=== PATIENT | female | born 1935 | race Caucasian/White ===

== ENCOUNTER 2017-11-24 11:25 | Observation (INO) | payer MEDICARE, OTHER ==
[~2017-11-24] VITALS: Ht 144.8 cm; Wt 52.0 kg
[~2017-11-24 11:25] MED LIST: ADVA250A INH; ASPI81 PO; BENI40TA30; CLON-481; COMBAER INH; COZA100T PO; EZET10; LABE200T2 PO; LEVA500T33 PO; PRED5SOL PO; RANI150 PO; SPIR25; ZOLO20CO PO
[2017-11-24 11:35] VITALS: BP 152/67; PULSE 82; RESP 16; TEMP 98.4; O2SAT 98
--- NOTE | 2017-11-24 11:37 | PD ---
HPI Chief Complaint: Psychiatric Symptoms Time Seen by Provider: 11:29 Travel History International Travel<30 days: No Contact w/Intl Traveler<30days: No Traveled to known affect area: No History of Present Illness HPI 82-year-old female with history of CAD, hypertension, COPD, diabetes, resents to emergency department for evaluation under a Mccullough act. Patient had sent her daughter an email who then contacted police. When police arrived, they found a letter addressed to them and another went to her family. Patient had cut her bilateral wrists with razor blades. She had turned on her grill gas but the gas tank was empty. She admits to taking more clonidine then she is prescribed this morning. Patient is not offering a lot of information and she is not talking about her suicide attempt. She keeps saying that she wants to go home and care for her dogs. She denies any current symptoms. She is very angry that she has been brought here to the emergency department. PFSH Past Medical History Arthritis: Yes Autoimmune Disease: No Blood Disorders: No Depression: Yes (since April) Heart Rhythm Problems: No Cancer: Yes () Cardiovascular Problems: Yes (CARDIAC CATH ) High Cholesterol: Yes Chemotherapy: Yes Chest Pain: No Congestive Heart Failure: No COPD: Yes Cerebrovascular Accident: No Diabetes: Yes Endocrine: No GERD: Yes (by hx) Glaucoma: No Genitourinary: No Headaches: Yes Hepatitis: No Hiatal Hernia: No Hypertension: Yes Immune Disorder: No Musculoskeletal: Yes Neurologic: No Psychiatric: No Reproductive: No Respiratory: Yes Migraines: No Myocardial Infarction: Yes () Radiation Therapy: No Seizures: No Sickle Cell Disease: No Sleep Apnea: No Thyroid Disease: No Ulcer: No Past Surgical History Abdominal Surgery: Yes () AICD: No Appendectomy: Yes (1937) Cardiac Surgery: No Cholecystectomy: Yes (2000) Ear Surgery: No Endocrine Surgery: Yes (CHOLECYSECTOMY IN THE ) Eye Surgery: No Gynecologic Surgery: Yes (HYSTERECTOMY AND BILAT SALPING-OOPHORECTOMY 01/12/06) Hysterectomy: Yes (01/14) Joint Replacement: No Oral Surgery: No Pacemaker: No Thoracic Surgery: No Social History Alcohol Use: No Tobacco Use: Yes (4-5 cigs daily) Substance Use: No Allergies-Medications (Allergen,Severity, Reaction): Coded Allergies: atenolol (Unverified Allergy, Severe, Rash, 05/25/17) atorvastatin (Unverified Allergy, Severe, ALL CHOLESTEROL MEDS N/V, ) diltiazem (Unverified Allergy, Severe, Rash, 05/25/17) diphenhydramine (Unverified Allergy, Severe, ALL ANTIHISTAMINES - CRAMPS, 05/25/17) doxycycline (Unverified Allergy, Severe, Rash, 05/25/17) minocycline (Unverified Allergy, Severe, Rash, 05/25/17) minoxidil (Unverified Allergy, Severe, 05/25/17) nitroglycerin (Unverified Allergy, Severe, Headache, 05/25/17) tigecycline (Unverified Allergy, Severe, Rash, 05/25/17) Uncoded Allergies: ACIDIC FOODS (Adverse Reaction, Intermediate, SKIN BREAK OUTS, 01/12/06) UTENOL (Adverse Reaction, Intermediate, RASH AND JOINT PAIN, 01/12/06) Reported Meds & Prescriptions Reported Meds & Active Scripts Active Reported Klor-Con 10 (Potassium Chloride) 10 Meq Tab 10 Meq PO DAILY Hydrochlorothiazide 12.5 Mg Cap Unknown Dose PO DAILY Advair Diskus Inh (Fluticasone-Salmeterol Inh) 500-50 Mcg/Blist Aer 1 Puff INH BID Rinse mouth after use. Lorazepam 2 Mg Tab 2 Mg PO HS PRN Benicar (Olmesartan) 40 Mg Tab 40 Mg PO DAILY Clonidine (Clonidine HCl) 0.2 Mg Tab 0.2 Mg PO QID Clonidine (Clonidine HCl) 0.3 Mg Tab 0.3 Mg PO HS Review of Systems Except as stated in HPI: all other systems reviewed are Neg Physical Exam Narrative GENERAL: Thin elderly female patient, sitting in the bed in no acute distress. SKIN: Focused skin assessment warm/dry. 2 cm laceration to the lateral aspect of the left anterior lateral wrist. There is another 3 cm laceration to the anterior lateral aspect of the right wrist. These are superficial in nature. Bleeding is controlled. HEAD: Atraumatic. Normocephalic. EYES: Pupils equal and round. No scleral icterus. No injection or drainage. ENT: No nasal bleeding or discharge. Mucous membranes pink and moist. NECK: Trachea midline. No JVD. CARDIOVASCULAR: Regular rate and rhythm. 3/6 systolic aortic murmur appreciated. RESPIRATORY: No accessory muscle use. Diminished. Breath sounds equal bilaterally. GASTROINTESTINAL: Abdomen soft, nondistended. Right lower quadrant tenderness to palpation.. Hepatic and splenic margins not palpable. MUSCULOSKELETAL: No obvious deformities. No clubbing. No cyanosis. No edema. He fully flex and extend all the digits of the bilateral upper extremities. NEUROLOGICAL: Awake and alert. No obvious cranial nerve deficits. Motor grossly within normal limits. Normal speech. PSYCHIATRIC: Flat affect. Data Data Last Documented VS Vital Signs Date Time Temp Pulse Resp B/P (MAP) Pulse Ox O2 Delivery O2 Flow Rate FiO2 11/24/17 11:35 98.4 82 16 152/67 (95) 98 Orders Orders Complete Blood Count With Diff (11/24/17 11:34) Comprehensive Metabolic Panel (11/24/17 11:34) Thyroid Stimulating Hormone (11/24/17 11:34) Psych Screen (11/24/17 11:34) Drug Screen, Random Urine (11/24/17 11:34) Urinalysis - C+S If Indicated (11/24/17 11:36) Electrocardiogram (11/24/17 11:36) Oximetry (11/24/17 11:36) Iv Access Insert/Monitor (11/24/17 11:36) Ecg Monitoring (11/24/17 11:36) Cath For Specimen (11/24/17 11:36) Alcohol (Ethanol) (11/24/17 11:36) Salicylates (Aspirin) (11/24/17 11:36) Tylenol (Acetaminophen) (11/24/17 11:36) Wound Care (11/24/17 11:36) Ckmb (Isoenzyme) Profile (11/24/17 12:39) Troponin I (11/24/17 12:39) Admit Order (Ed Use Only) (11/24/17 14:59) Consult Psychiatry (11/24/17 ) Labs Laboratory Tests Test 11/24/17 11:42 11/24/17 11:45 Urine Color YELLOW Urine Turbidity CLEAR Urine pH 7.0 Urine Specific Jonancy 1.014 Urine Protein NEG mg/dL Urine Glucose (UA) NEG mg/dL Urine Ketones NEG mg/dL Urine Occult Blood NEG Urine Nitrite NEG Urine Bilirubin NEG Urine Urobilinogen LESS THAN 2.0 MG/DL Urine Leukocyte Esterase NEG Urine RBC LESS THAN 1 /hpf Urine WBC 1 /hpf Microscopic Urinalysis Comment CULT NOT INDICATED Urine Opiates Screen NEG Urine Barbiturates Screen NEG Urine Amphetamines Screen NEG Urine Benzodiazepines Screen NEG Urine Cocaine Screen NEG Urine Cannabinoids Screen NEG White Blood Count 10.7 TH/MM3 Red Blood Count 2.49 MIL/MM3 Hemoglobin 7.4 GM/DL Hematocrit 21.9 % Mean Corpuscular Volume 87.8 FL Mean Corpuscular Hemoglobin 29.8 PG Mean Corpuscular Hemoglobin Concent 34.0 % Red Cell Distribution Width 16.7 % Platelet Count 470 TH/MM3 Mean Platelet Volume 7.0 FL Neutrophils (%) (Auto) 83.2 % Lymphocytes (%) (Auto) 10.9 % Monocytes (%) (Auto) 4.8 % Eosinophils (%) (Auto) 0.2 % Basophils (%) (Auto) 0.9 % Neutrophils # (Auto) 8.9 TH/MM3 Lymphocytes # (Auto) 1.2 TH/MM3 Monocytes # (Auto) 0.5 TH/MM3 Eosinophils # (Auto) 0.0 TH/MM3 Basophils # (Auto) 0.1 TH/MM3 CBC Comment DIFF FINAL Differential Comment Blood Urea Nitrogen 18 MG/DL Creatinine 0.79 MG/DL Random Glucose 109 MG/DL Total Protein 6.3 GM/DL Albumin 3.0 GM/DL Calcium Level 8.6 MG/DL Alkaline Phosphatase 81 U/L Aspartate Amino Transf (AST/SGOT) 26 U/L Alanine Aminotransferase (ALT/SGPT) 32 U/L Total Bilirubin 0.3 MG/DL Sodium Level 142 MEQ/L Potassium Level 4.4 MEQ/L Chloride Level 111 MEQ/L Carbon Dioxide Level 23.3 MEQ/L Anion Gap 8 MEQ/L Estimat Glomerular Filtration Rate 70 ML/MIN Total Creatine Kinase 58 U/L Troponin I 0.34 NG/ML Thyroid Stimulating Hormone 3rd Gen 1.400 uIU/ML Salicylates Level LESS THAN 1.7 MG/DL Acetaminophen Level 11.8 MCG/ML Ethyl Alcohol Level LESS THAN 3 MG/DL [facility] Medical Decision Making Medical Screen Exam Complete: Yes Emergency Medical Condition: Yes Medical Record Reviewed: Yes Differential Diagnosis Laceration superficial versus deep versus depression versus mood disorder versus personality disorder versus electrode abnormality versus UTI Narrative Course 82-year-old female brought to the emergency department under a Mccullough act for active suicide attempt. Patient has very flat affect. She is not offering a lot of information. She denies any acute medical needs. Lab work is done for medical clearance. Patient does have ST elevation in V1 which is new compared to an EKG we had in 2008. ST depression in the anterolateral leads is also more defined. My attending has reviewed this. Patient is having no pain. Troponin will be added to the lab work. Laboratory Tests Test 11/24/17 11:42 11/24/17 11:45 Urine Color YELLOW Urine Turbidity CLEAR Urine pH 7.0 Urine Specific Jonancy 1.014 Urine Protein NEG mg/dL Urine Glucose (UA) NEG mg/dL Urine Ketones NEG mg/dL Urine Occult Blood NEG Urine Nitrite NEG Urine Bilirubin NEG Urine Urobilinogen LESS THAN 2.0 MG/DL Urine Leukocyte Esterase NEG Urine RBC LESS THAN 1 /hpf Urine WBC 1 /hpf Microscopic Urinalysis Comment CULT NOT INDICATED Urine Opiates Screen NEG Urine Barbiturates Screen NEG Urine Amphetamines Screen NEG Urine Benzodiazepines Screen NEG Urine Cocaine Screen NEG Urine Cannabinoids Screen NEG White Blood Count 10.7 TH/MM3 Red Blood Count 2.49 MIL/MM3 Hemoglobin 7.4 GM/DL Hematocrit 21.9 % Mean Corpuscular Volume 87.8 FL Mean Corpuscular Hemoglobin 29.8 PG Mean Corpuscular Hemoglobin Concent 34.0 % Red Cell Distribution Width 16.7 % Platelet Count 470 TH/MM3 Mean Platelet Volume 7.0 FL Neutrophils (%) (Auto) 83.2 % Lymphocytes (%) (Auto) 10.9 % Monocytes (%) (Auto) 4.8 % Eosinophils (%) (Auto) 0.2 % Basophils (%) (Auto) 0.9 % Neutrophils # (Auto) 8.9 TH/MM3 Lymphocytes # (Auto) 1.2 TH/MM3 Monocytes # (Auto) 0.5 TH/MM3 Eosinophils # (Auto) 0.0 TH/MM3 Basophils # (Auto) 0.1 TH/MM3 CBC Comment DIFF FINAL Differential Comment Blood Urea Nitrogen 18 MG/DL Creatinine 0.79 MG/DL Random Glucose 109 MG/DL Total Protein 6.3 GM/DL Albumin 3.0 GM/DL Calcium Level 8.6 MG/DL Alkaline Phosphatase 81 U/L Aspartate Amino Transf (AST/SGOT) 26 U/L Alanine Aminotransferase (ALT/SGPT) 32 U/L Total Bilirubin 0.3 MG/DL Sodium Level 142 MEQ/L Potassium Level 4.4 MEQ/L Chloride Level 111 MEQ/L Carbon Dioxide Level 23.3 MEQ/L Anion Gap 8 MEQ/L Estimat Glomerular Filtration Rate 70 ML/MIN Total Creatine Kinase 58 U/L Troponin I 0.34 NG/ML Thyroid Stimulating Hormone 3rd Gen 1.400 uIU/ML Salicylates Level LESS THAN 1.7 MG/DL Acetaminophen Level 11.8 MCG/ML Ethyl Alcohol Level LESS THAN 3 MG/DL Patient's hemoglobin is 7.4. I received a call from her [id number] who advised me she was in [facility] last week with a GI bleed. Records have been requested from there. Patient's troponin also is 0.34. I discussed the patient my attending. Patient be admitted to medicine for further evaluation of this. She remains under a Mccullough act. [phone] Hamida Asad, patient's [id number] Diagnosis Primary Impression: Suicide attempt Additional Impressions: Elevated troponin Anemia Qualified Codes: D64.9 - Anemia, unspecified Admitting Information Admitting Physician Requests: Admit Condition: Stable Jessica Marley Nov 24, 2017 11:37
[2017-11-24] MEDS ORDERED: CLON0.2T PO ×2 (11:41)
[2017-11-24] MEDS ORDERED: CLON0.3T PO (11:41)
[2017-11-24] MEDS ORDERED: LORA2TAB7 PO (11:41)
[2017-11-24] MEDS ORDERED: EZET10 PO (11:41)
[2017-11-24] MEDS ORDERED: ADVA500A INH (11:41)
[2017-11-24] MEDS ORDERED: BENI40TA29 PO (11:41)
[2017-11-24] MEDS ORDERED: AMLO5TAB2 PO (11:44)
[2017-11-24] MEDS ORDERED: HYDR12.57 PO (11:44)
[2017-11-24 11:58] LABS: BILIRUBIN, URINE NEG (NEG); BLOOD, URINE NEG (NEG); GLUCOSE,URINE NEG (NEG); KETONE, URINE NEG (NEG); NITRITE,URINE NEG (NEG); URINE COLOR YELLOW (YELLW/STRAW); URINE LEUKOCYTE ESTERASE NEG (NEG)
[2017-11-24 11:58] LABS: AUTOMATED NEUTROPHIL # 8.9 TH/MM3 (1.8-7.7); BASOPHIL # 0.1 TH/MM3 (0-0.2); BASOPHIL % 0.9 % (0.0-2.0); EOSINOPHIL % 0.2 % (0.0-4.0); HEMATOCRIT 21.9 % (35.0-46.0); HEMOGLOBIN 7.4 GM/DL (11.6-15.3); LYMPH % 10.9 % (9.0-44.0); LYMPHOCYTE # 1.2 TH/MM3 (1.0-4.8); MEAN CELL VOLUME 87.8 FL (80.0-100.0); MEAN CORPUSCULAR HEMOGLOBIN 29.8 PG (27.0-34.0); MONO % 4.8 % (0.0-8.0); MONOCYTE # 0.5 TH/MM3 (0-0.9); NEUT % 83.2 % (16.0-70.0); PLATELET COUNT 470 TH/MM3 (150-450); RED BLOOD COUNT 2.49 MIL/MM3 (4.00-5.30); RED CELL DISTRIBUTION WIDTH 16.7 % (11.6-17.2); WHITE BLOOD COUNT 10.7 TH/MM3 (4.0-11.0)
[2017-11-24] MEDS ORDERED: KLOR10TA PO ×2 (12:25)
[2017-11-24 13:09] LABS: ALT (GPT) 32 U/L (10-53); AST (GOT) 26 U/L (15-37); BICARBONATE 23.3 MEQ/L (21.0-32.0); BLOOD UREA NITROGEN 18 MG/DL (7-18); CALCIUM 8.6 MG/DL (8.5-10.1); CHLORIDE 111 MEQ/L (98-107); CREATININE 0.79 MG/DL (0.50-1.00); GLOMERULAR FILTRATION RATE 70 ML/MIN (>89); GLUCOSE,RANDOM 109 MG/DL (74-106); SODIUM (NA) 142 MEQ/L (136-145)
[2017-11-24 13:11] LABS: TROPONIN I 0.34 NG/ML (0.02-0.05)
[2017-11-24 13:12] LABS: ACETAMINOPHEN 11.8 MCG/ML (10.0-30.0)
[2017-11-24 13:19] LABS: ALKALINE PHOSPHATASE 81 U/L (45-117); TOTAL BILIRUBIN ADULT 0.3 MG/DL (0.2-1.0); TOTAL PROTEIN 6.3 GM/DL (6.4-8.2)
[2017-11-24] MEDS ORDERED: LACTULOSE SYRUP 20 GM/30 ML CUP PO PRN (15:15)
[2017-11-24] MEDS ORDERED: MAGNESIUM HYDROXIDE SUSP 30 ML CUP PO PRN (15:15)
[2017-11-24] MEDS ORDERED: BISACODYL 10 MG SUPP RECTAL PRN (15:15)
[2017-11-24] MEDS ORDERED: NALOXONE HCL 0.4 MG/ML AMP IV PUSH PRN (15:15)
[2017-11-24] MEDS ORDERED: SENNOSIDES 8.6 MG TAB PO PRN (15:15)
[2017-11-24 17:39] VITALS: BP 165/74; PULSE 78; RESP 16; O2SAT 98
[2017-11-24] MEDS ORDERED: SODIUM CHLORIDE 0.9% FLUSH 10 ML FLUSH IV FLUSH PRN (19:00)
[2017-11-24 19:12] LABS: TROPONIN I 0.33 NG/ML (0.02-0.05)
--- NOTE | 2017-11-24 20:46 | HHI.HP ---
[facility] Primary [facility] Physician Non-Staff Admission Diagnosis elevated trop; anemia Diagnoses: Travel History International Travel<30 Days: No Contact w/Intl Traveler <30 Da: No Traveled to Known Affected Are: No History of Present Illness was at [facility] for a week and discharged on - admitted wednesday or wednesday Dr Nicholson is em[facility] GI doc had melana and brbpr then 5 points where blood was comign in and cauterized it was given 3 prbc then had gain water weigth and thsu took hctz at home had colonoscpy then for gi bleed have pad on left leg , has apt tomorrow am with vascular sx to do US for this but had another bleeding last night and was upset, was both brbpr and melana then again. depressed because of this took her 2 hrs to get out of that depresson thus cut herself at 100a.m. police called for routine check in am she did not anser, thus came to check on her she was crying and on bed thus ba, and sent here used to be on plavix till this episode of bleeding has hx of afib Review of Systems Except as stated in HPI: all other systems reviewed are Neg Past Family Social History Past Medical History htn cad - s/p stent last may 2017 afib - Dr Maurice copd - on home oxygen 3L at night LLE PAD- pending further vascular sx eval for putting a stent there per pt- Dr Isaacs (has apt with him and US tomorrow) hx of 2003 of uterine cancer- s/p hysterectomy and radiation depression since of heart murmur Osteoarthritis Psoriasis Past Surgical History hysterectomy appendectomy cholecystectomy tonsilectomy angiogram with stent Allergies: Coded Allergies: atenolol (Unverified Allergy, Severe, Rash, 05/25/17) atorvastatin (Unverified Allergy, Severe, ALL CHOLESTEROL MEDS N/V, ) diltiazem (Unverified Allergy, Severe, Rash, 05/25/17) diphenhydramine (Unverified Allergy, Severe, ALL ANTIHISTAMINES - CRAMPS, 8/15/17) doxycycline (Unverified Allergy, Severe, Rash, 05/25/17) minocycline (Unverified Allergy, Severe, Rash, 05/25/17) minoxidil (Unverified Allergy, Severe, 05/25/17) nitroglycerin (Unverified Allergy, Severe, Headache, 05/25/17) tigecycline (Unverified Allergy, Severe, Rash, 05/25/17) Uncoded Allergies: ACIDIC FOODS (Adverse Reaction, Intermediate, SKIN BREAK OUTS, 01/12/06) UTENOL (Adverse Reaction, Intermediate, RASH AND JOINT PAIN, 01/12/06) Family History none that she knows of mom lived till 85 yo Social History quit smoking 6 months ago no etoh abuse no drugs abuse lives with 2 dogs, 's children are in [place] still driving Physical Exam Vital Signs Vital Signs Date Time Temp Pulse Resp B/P (MAP) Pulse Ox O2 Delivery O2 Flow Rate FiO2 11/24/17 17:39 78 16 165/74 (104) 98 Room Air 11/24/17 11:35 98.4 82 16 152/67 (95) 98 Physical Exam GENERAL: This is a well-nourished, well-developed patient, in no apparent distress. SKIN: No rashes, ecchymoses or lesions. Cool and dry. HEAD: Atraumatic. Normocephalic. No temporal or scalp tenderness. EYES: Pupils equal round and reactive. Extraocular motions intact. No scleral icterus. No injection or drainage. ENT: Nose without bleeding, purulent drainage or septal hematoma. Throat without erythema, tonsillar hypertrophy or exudate. Uvula midline. Airway patent. NECK: Trachea midline. No JVD or lymphadenopathy. Supple, nontender, no meningeal signs. CARDIOVASCULAR: Regular rate and rhythm without murmurs, gallops, or rubs. RESPIRATORY: Clear to auscultation. Breath sounds equal bilaterally. No wheezes , rales, or rhonchi. GASTROINTESTINAL: Abdomen soft, non-tender, nondistended. No hepato-splenomegaly , or palpable masses. No guarding. MUSCULOSKELETAL: Extremities without clubbing, cyanosis, or edema. No joint tenderness, effusion, or edema noted. No calf tenderness. Negative Homans sign bilaterally. NEUROLOGICAL: Awake and alert. Cranial nerves II through XII intact. Motor and sensory grossly within normal limits. Five out of 5 muscle strength in all muscle groups. Normal speech. Laboratory Laboratory Tests Test 11/24/17 11:42 11/24/17 11:45 11/24/17 18:33 Urine Color YELLOW Urine Turbidity CLEAR Urine pH 7.0 Urine Specific [place] 1.014 Urine Protein NEG Urine Glucose (UA) NEG Urine Ketones NEG Urine Occult Blood NEG Urine Nitrite NEG Urine Bilirubin NEG Urine Urobilinogen LESS THAN 2.0 Urine Leukocyte Esterase NEG Urine RBC LESS THAN 1 Urine WBC 1 Microscopic Urinalysis Comment CULT NOT INDICATED Urine Opiates Screen NEG Urine Barbiturates Screen NEG Urine Amphetamines Screen NEG Urine Benzodiazepines Screen NEG Urine Cocaine Screen NEG Urine Cannabinoids Screen NEG White Blood Count 10.7 Red Blood Count 2.49 Hemoglobin 7.4 Hematocrit 21.9 Mean Corpuscular Volume 87.8 Mean Corpuscular Hemoglobin 29.8 Mean Corpuscular Hemoglobin Concent 34.0 Red Cell Distribution Width 16.7 Platelet Count 470 Mean Platelet Volume 7.0 Neutrophils (%) (Auto) 83.2 Lymphocytes (%) (Auto) 10.9 Monocytes (%) (Auto) 4.8 Eosinophils (%) (Auto) 0.2 Basophils (%) (Auto) 0.9 Neutrophils # (Auto) 8.9 Lymphocytes # (Auto) 1.2 Monocytes # (Auto) 0.5 Eosinophils # (Auto) 0.0 Basophils # (Auto) 0.1 CBC Comment DIFF FINAL Differential Comment Blood Urea Nitrogen 18 Creatinine 0.79 Random Glucose 109 Total Protein 6.3 Albumin 3.0 Calcium Level 8.6 Alkaline Phosphatase 81 Aspartate Amino Transf (AST/SGOT) 26 Alanine Aminotransferase (ALT/SGPT) 32 Total Bilirubin 0.3 Sodium Level 142 Potassium Level 4.4 Chloride Level 111 Carbon Dioxide Level 23.3 Anion Gap 8 Estimat Glomerular Filtration Rate 70 Total Creatine Kinase 58 46 Troponin I 0.34 0.33 Thyroid Stimulating Hormone 3rd Gen 1.400 Salicylates Level LESS THAN 1.7 Acetaminophen Level 11.8 Ethyl Alcohol Level LESS THAN 3 Result Diagram: 11/24/17 1145 11/24/17 1145 Caprini VTE Risk Assessment Caprini Risk Assessment Model Point Value = 1 Point Value = 2 Point Value = 3 Point Value = 5 Age 41-60 Minor surgery BMI > 25 kg/m2 Swollen legs Varicose veins or History of unexplained or recurrent spontaneous Oral contraceptives or hormone replacement Sepsis (< 1 month) Serious lung disease, including pneumonia (< 1 month) Abnormal pulmonary function Acute myocardial infarction Congestive heart failure (< 1 month) History of inflammatory bowel disease Medical patient at bed rest Age 61-74 Arthroscopic surgery Major open surgery (> 45 min) Laparoscopic surgery (> 45 min) Malignancy Confined to bed (> 72 hours) Immobilizing plaster cast Central venous access Age >= 75 History of VTE Family history of VTE Factor V Leiden Prothrombin [id number] Lupus anticoagulant Anticardiolipin antibodies Elevated serum homocysteine Heparin-induced thrombocytopenia Other congenital or acquired thrombophilia Stroke (< 1 month) Elective arthroplasty Hip, pelvis, or leg fracture Acute spinal cord injury (< 1 month) Prophylaxis Regimen Total Risk Factor Score Risk Level Prophylaxis Regimen 0-1 Low Early ambulation 2 Moderate Order ONE of the following: *Sequential Compression Device (SCD) *Heparin 5000 units SQ BID 3-4 Higher Order ONE of the following medications: *Heparin 5000 units SQ TID *Enoxaparin/Lovenox 40 mg SQ daily (WT < 150 kg, CrCl > 30 mL/min) *Enoxaparin/Lovenox 30 mg SQ daily (WT < 150 kg, CrCl > 10-29 mL/min) *Enoxaparin/Lovenox 30 mg SQ BID (WT < 150 kg, CrCl > 30 mL/min) AND/OR *Sequential Compression Device (SCD) 5 or more Highest Order ONE of the following medications: *Heparin 5000 units SQ TID (Preferred with Epidurals) *Enoxaparin/Lovenox 40 mg SQ daily (WT < 150 kg, CrCl > 30 mL/min) *Enoxaparin/Lovenox 30 mg SQ daily (WT < 150 kg, CrCl > 10-29 mL/min) *Enoxaparin/Lovenox 30 mg SQ BID (WT < 150 kg, CrCl > 30 mL/min) AND *Sequential Compression Device (SCD) Ruthy Chambers MD Nov 24, 2017 20:46
[2017-11-24] MEDS ORDERED: cloNIDine HCL 0.2 MG TAB PO SCH (21:00)
[2017-11-24 21:41] LABS: AUTOMATED NEUTROPHIL # 6.5 TH/MM3 (1.8-7.7); BASOPHIL # 0.1 TH/MM3 (0-0.2); BASOPHIL % 0.8 % (0.0-2.0); EOSINOPHIL # 0.1 TH/MM3 (0-0.4); EOSINOPHIL % 0.9 % (0.0-4.0); LYMPH % 14.9 % (9.0-44.0); LYMPHOCYTE # 1.3 TH/MM3 (1.0-4.8); MEAN CELL VOLUME 88.3 FL (80.0-100.0); MEAN CORPUSCULAR HEMOGLOBIN 29.8 PG (27.0-34.0); MEAN CORPUSCULAR HGB CONC 33.7 % (32.0-36.0); MEAN PLATELET VOLUME 7.1 FL (7.0-11.0); MONO % 8.2 % (0.0-8.0); MONOCYTE # 0.7 TH/MM3 (0-0.9); NEUT % 75.2 % (16.0-70.0); PLATELET COUNT 474 TH/MM3 (150-450); RED BLOOD COUNT 2.35 MIL/MM3 (4.00-5.30); RED CELL DISTRIBUTION WIDTH 17.4 % (11.6-17.2); WHITE BLOOD COUNT 8.7 TH/MM3 (4.0-11.0)
[2017-11-24] MEDS ORDERED: PANTOPRAZOLE SOD 40 MG DELAYED RELEASE TAB PO ONE (21:45)
[2017-11-24 21:58] LABS: HEMATOCRIT 20.7 % (35.0-46.0)
[2017-11-24] MEDS ORDERED: cloNIDine HCL 0.3 MG TAB PO SCH (22:00)
[2017-11-24] MEDS: LORazepam 2 MG TAB PO PRN (22:03)
[2017-11-24] MEDS: DOCUSATE SODIUM 50 MG/SENNA 8.6 MG TAB PO SCH (22:03)
[2017-11-24] MEDS: SODIUM CHLORIDE 0.9% FLUSH 10 ML FLUSH IV FLUSH SCH (22:03)
[2017-11-24 22:40] VITALS: BP 178/77; PULSE 98; RESP 18; O2SAT 100
[2017-11-24] MEDS ORDERED: ACETAMINOPHEN 325 MG TAB PO ONE (23:15)
[2017-11-25] VITALS (24 sets, daily range): BP systolic 144–197; BP diastolic 76–101; PULSE 70–95; RESP 16–20; TEMP 97.3–99.2; O2SAT 98–100
[2017-11-25 01:01] LABS: TROPONIN I 0.24 NG/ML (0.02-0.05)
[2017-11-25 06:38] LABS: AUTOMATED NEUTROPHIL # 7.1 TH/MM3 (1.8-7.7); BASOPHIL # 0.1 TH/MM3 (0-0.2); BASOPHIL % 0.8 % (0.0-2.0); EOSINOPHIL # 0.1 TH/MM3 (0-0.4); EOSINOPHIL % 0.9 % (0.0-4.0); HEMATOCRIT 21.6 % (35.0-46.0); HEMOGLOBIN 7.3 GM/DL (11.6-15.3); LYMPH % 12.3 % (9.0-44.0); LYMPHOCYTE # 1.1 TH/MM3 (1.0-4.8); MEAN CELL VOLUME 89.1 FL (80.0-100.0); MEAN CORPUSCULAR HGB CONC 33.6 % (32.0-36.0); MEAN PLATELET VOLUME 7.1 FL (7.0-11.0); MONOCYTE # 0.6 TH/MM3 (0-0.9); PLATELET COUNT 481 TH/MM3 (150-450); RED BLOOD COUNT 2.42 MIL/MM3 (4.00-5.30); RED CELL DISTRIBUTION WIDTH 17.2 % (11.6-17.2)
[2017-11-25 07:03] LABS: BICARBONATE 25.6 MEQ/L (21.0-32.0); CALCIUM 8.6 MG/DL (8.5-10.1); CREATININE 0.92 MG/DL (0.50-1.00)
[2017-11-25 08:10] LABS: BANDS 1 % (0-6); LYMPHOCYTES 15 % (9-44); MONOCYTES 9 % (0-8); MYELOCYTES 2 % (0-0); NEUTROPHIL # MANUAL DIFF 6.8 TH/MM3 (1.8-7.7); POLYS (SEG NEUTROPHILS) 72 % (16-70)
--- NOTE | 2017-11-25 08:41 | HHI.PR ---
Subjective Remarks in no acute distress. crying during our conversation. denies chest pain or sob. Objective Vitals Vital Signs Date Time Temp Pulse Resp B/P (MAP) Pulse Ox O2 Delivery O2 Flow Rate FiO2 11/25/17 06:00 83 11/25/17 05:00 95 11/25/17 04:00 83 11/25/17 03:00 85 11/25/17 03:00 98.9 85 16 144/76 (98) 100 11/25/17 02:00 95 11/25/17 01:00 89 11/25/17 00:30 99.2 89 16 167/80 (109) 100 11/25/17 00:30 89 11/25/17 00:19 11/24/17 22:40 98 18 178/77 (110) 100 Nasal Cannula 3.00 11/24/17 17:39 78 16 165/74 (104) 98 Room Air 11/24/17 11:35 98.4 82 16 152/67 (95) 98 I/O 11/24/17 11/24/17 11/24/17 11/25/17 11/25/17 11/25/17 07:00 15:00 23:00 07:00 15:00 23:00 Intake Total 240 ml Balance 240 ml Intake Oral 240 ml # Voids 1 # Bowel Movements 0 Result Diagram: 11/25/17 0514 11/25/17 0517 Objective Remarks GENERAL: This is a well-nourished, well-developed patient, in no apparent distress. CARDIOVASCULAR: Regular rate and regular rhythm without murmurs, gallops, or rubs. RESPIRATORY: Clear to auscultation. Breath sounds equal bilaterally. No wheezes , rales, or rhonchi. GASTROINTESTINAL: Abdomen soft, non-tender, nondistended. Normal, active bowel sounds MUSCULOSKELETAL: Extremities without clubbing, cyanosis, or edema. NEURO: Alert & Oriented x4 to person, place, time, situation. Moves all ext x4 Medications and IVs Inpatient Medications Acetaminophen (Tylenol) 975 mg ONCE ONCE PO Last administered on 11/25/17at 02: 57; Start 11/24/17 at 23:15; Stop 11/24/17 at 23:16; Status DC Bisacodyl (Dulcolax Supp) 10 mg DAILY PRN RECTAL SEVERE CONSITIPATION; Start at 15:15 Budesonide/ Formoterol Fumarate (Symbicort 160-4.5 Mcg Inh) 2 puff BID INH ; Start 11/24/17 at 22:00 Clonidine (Catapres) 0.3 mg HS PO Last administered on 11/24/17at 22:03; Start 11/24/17 at 22:00 Lactulose (Lactulose Liq) 30 ml DAILY PRN PO SEVERE CONSITIPATION; Start at 15:15 Lorazepam (Ativan) 2 mg HS PRN PO ANXIETY AND/OR INSOMNIA Last administered on 11/24/17at 22:03; Start 11/24/17 at 21:00 Losartan Potassium (Cozaar) 100 mg DAILY PO ; Start 11/25/17 at 09:00 Magnesium Hydroxide (Milk Of Magnesia Liq) 30 ml Q12H PRN PO Mild constipation ; Start 11/24/17 at 15:15 Naloxone HCl (Narcan Inj) 0.4 mg UNSCH PRN IV PUSH SEE LABEL COMMENTS; Start at 15:15 Ondansetron HCl (Zofran Inj) 4 mg Q6H PRN IVP NAUSEA OR VOMITING; Start at 15:15 Pantoprazole Sodium (Protonix) 40 mg DAILY PO ; Start 11/25/17 at 09:00 Senna/Docusate Sodium (Sarah-Colace) 1 tab BID PO Last administered on at 22:03; Start 11/24/17 at 21:00 Sennosides (Senokot) 17.2 mg Q12H PRN PO Moderate constipation; Start 11/24/17 at 15:15 Sodium Chloride (NS Flush) 2 ml BID IV FLUSH Last administered on 11/24/17at 22: 03; Start 11/24/17 at 21:00 A/P Assessment and Plan A/P -depression with suicidal thoughts/attempt psych consulted- d/w at the bedside. -elevated troponin with CAD- s/p stent placement last year- no chest pain- consult cardiology. -recent GI bleed- admitted to [facility] and had GI work-up; awaiting the medical record. -anemia- due to chronic disease and recent GI bleed-asymptomatic at this time- will continue to monitor for now and transfuse as needed. -hypertension; resumed home meds -DVT prophylaxis with SCD's Discharge Planning awaiting psych/cardiology evaluation. Nithin Starks MD Nov 25, 2017 08:41
[2017-11-25] MEDS: BUDESONIDE-FORMOTEROL 160/4.5 MCG INHALER INH SCH ×2 (09:00→20:10)
[2017-11-25] MEDS: SODIUM CHLORIDE 0.9% FLUSH 10 ML FLUSH IV FLUSH SCH ×2 (09:40→20:10)
[2017-11-25] MEDS: DOCUSATE SODIUM 50 MG/SENNA 8.6 MG TAB PO SCH ×2 (09:40→20:09)
[2017-11-25] MEDS: PANTOPRAZOLE SOD 40 MG DELAYED RELEASE TAB PO SCH (09:40)
[2017-11-25] MEDS: LOSARTAN 50 MG TAB PO SCH (11:05)
[2017-11-25] MEDS: ACETAMINOPHEN 325 MG TAB PO PRN ×2 (11:08→18:38)
[2017-11-25] MEDS ORDERED: cloNIDine HCL 0.1 MG TAB PO SCH (14:00)
[2017-11-25] MEDS ORDERED: cloNIDine HCL 0.2 MG TAB PO SCH (14:00)
--- NOTE | 2017-11-25 14:08 | PD.PSY.CON ---
Provisional Diagnosis Admission Date Nov 24, 2017 at 15:02 [place] I. Major depressive disorder, recurrent, severe, without psychosis [place] II. Deferred [place] III. Hypertension, GI bleeding History of Present Illness Service Psychiatry Consult Requested By Medical team Reason for Consult Suicidal attempt Primary Care Physician Non-Staff HPI The patient is a 82-year-old woman, domiciled alone in the [place], , with psychiatric history of depression, 1 previous psychotic hospitalizations in [place] in 2008, no previous suicidal attempts, she is not in psychotropics at the moment, with medical history of CAD, hypertension, COPD , diabetes, resents to emergency department for evaluation under a Mccullough act. Patient had sent her daughter an email who then contacted police. When police arrived, they found a letter addressed to them and another went to her family. Patient had cut her bilateral wrists with razor blades. She had turned on her grill gas but the gas tank was empty. She admits to taking more clonidine then she is prescribed this morning. Patient is not offering a lot of information and she is not talking about her suicide attempt. She keeps saying that she wants to go home and care for her dogs. She denies any current symptoms. She is very angry that she has been brought here to the emergency department. She was at [facility] for a week and discharged on - admitted Wednesday or Wednesday. On psychiatric evaluation today the patient is calm, cooperative, visibly depressed, reports that she has been very upset and frustrated many of her best friend has been time. She says that her best friend recently she has been coping poorly with that. She relates that yesterday she lost the control of herself and she could not avoid date of harming herself and committed suicide. She reports several weeks of depressed mood, anhedonia, hopelessness, helplessness, she says that she has recently received the news that her grandson is not going to be able to study medicine in the [place] "and [place], this doesn't seem to be a great deal, but I am currently exaggerating and seen in a very pessimistic way everything my life". At this moment she says that she feels safe, she denies suicidal and homicidal ideation, she was able to contract for safety in the hospital. She denies visual and auditory hallucinations. The patient is fully oriented 3, no attention deficit present, no fluctuation of consciousness. She denies the use of alcohol and illegal drugs. Review of Systems Constitutional: DENIES: Diaphoretic episodes, Fatigue, Fever, Weight gain, Weight loss, Chills, Dizziness, Change in appetite, Night Sweats Endocrine: DENIES: Abnorml menstrual pattern, Heat/cold intolerance, Polydipsia , Polyuria, Polyphagia Eyes: DENIES: Blurred vision, Diplopia, Eye inflammation, Eye pain, Vision loss , Photosensitivity, Double Vision Ears, nose, mouth, throat: DENIES: Tinnitus, Hearing loss, Vertigo, Nasal discharge, Oral lesions, Throat pain, Hoarseness, Ear Pain, Running Nose, Epistaxis, Sinus Pain, Toothache, Odynophagia Respiratory: DENIES: Apneas, Cough, Snoring, Wheezing, Hemoptysis, Sputum production, Shortness of breath Cardiovascular: DENIES: Chest pain, Palpitations, Syncope, Dyspnea on Exertion , PND, Lower Extremity Edema, Orthopnea, Claudication Gastrointestinal: DENIES: Abdominal pain, Black stools, Bloody stools, Constipation, Diarrhea, Nausea, Vomiting, Difficulty Swallowing, Anorexia Genitourinary: DENIES: Abnormal vaginal bleeding, Dysmenorrhea, Dyspareunia, Sexual dysfunction, Urinary frequency, Urinary incontinence, Urgency, Hematuria , Dysuria, Nocturia, Vaginal discharge Musculoskeletal: DENIES: Joint pain, Muscle aches, Stiffness, Joint Swelling, Back pain, Neck pain Integumentary: DENIES: Abnormal pigmentation, Pruritus, Rash, Nail changes, Breast masses, Breast skin changes, Nipple discharge Hematologic/lymphatic: DENIES: Bruising, Lymphadenopathy Immunologic/allergic: DENIES: Eczema, Urticaria Neurologic: DENIES: Abnormal gait, Headache, Localized weakness, Paresthesias, Seizures, Speech Problems, Tremor, Poor Balance Psychiatric: COMPLAINS OF: Depression, Suicidal Ideation Past Family Social History Coded Allergies: atenolol (Unverified Allergy, Severe, Rash, 05/25/17) atorvastatin (Unverified Allergy, Severe, ALL CHOLESTEROL MEDS N/V, ) diltiazem (Unverified Allergy, Severe, Rash, 05/25/17) diphenhydramine (Unverified Allergy, Severe, ALL ANTIHISTAMINES - CRAMPS, 05/25/17) doxycycline (Unverified Allergy, Severe, Rash, 05/25/17) minocycline (Unverified Allergy, Severe, Rash, 05/25/17) minoxidil (Unverified Allergy, Severe, 05/25/17) nitroglycerin (Unverified Allergy, Severe, Headache, 05/25/17) tigecycline (Unverified Allergy, Severe, Rash, 05/25/17) Uncoded Allergies: ACIDIC FOODS (Adverse Reaction, Intermediate, SKIN BREAK OUTS, 01/12/06) UTENOL (Adverse Reaction, Intermediate, RASH AND JOINT PAIN, 01/12/06) Reported Medications Potassium Chloride ER (Klor-Con 10) 10 Meq Tab, 10 MEQ PO DAILY for Electrolyte Replacement, #30 TAB 0 Refills 11/24/17 Hydrochlorothiazide (Hydrochlorothiazide) 12.5 Mg Cap, PO DAILY, #30 CAP 0 Refills 11/24/17 Fluticasone-Salmeterol Inh (Advair Diskus Inh) 500-50 Mcg/Blist Aer, 1 PUFF INH BID, #1 INHALER 0 Refills Rinse mouth after use. 11/24/17 Lorazepam (Lorazepam) 2 Mg Tab, 2 MG PO HS Y for ANXIETY AND/OR INSOMNIA, TAB 0 Refills 11/24/17 Olmesartan (Benicar) 40 Mg Tab, 40 MG PO DAILY for Blood Pressure Management, # 30 TAB 0 Refills 11/24/17 Clonidine (Clonidine) 0.2 Mg Tab, 0.2 MG PO QID for Blood Pressure Management, # 60 TAB 0 Refills 11/24/17 Clonidine (Clonidine) 0.3 Mg Tab, 0.3 MG PO HS for Blood Pressure Management, # 60 TAB 0 Refills 11/24/17 Discontinued Reported Medications Amlodipine (Amlodipine) 5 Mg Tab, 5 MG PO DAILY for Blood Pressure Management, # 30 TAB 0 Refills 11/24/17 Ezetimibe (Zetia) 10 Mg Tab, 10 MG PO DAILY, #30 TAB 0 Refills 11/24/17 Current Medications Medications (Trade) Dose Ordered Sig/Velma Route Start Time Stop Time Status Last Admin (Tylenol) 650 mg Q4H PRN PO 11/24/17 15:15 11/25/17 11:08 (Zofran Inj) 4 mg Q6H PRN IVP 11/24/17 15:15 (Narcan Inj) 0.4 mg UNSCH PRN IV PUSH 11/24/17 15:15 (Sarah-Colace) 1 tab BID PO 11/24/17 21:00 11/25/17 09:40 (Milk Of Magnesia Liq) 30 ml Q12H PRN PO 11/24/17 15:15 (Senokot) 17.2 mg Q12H PRN PO 11/24/17 15:15 (Dulcolax Supp) 10 mg DAILY PRN RECTAL 11/24/17 15:15 (Lactulose Liq) 30 ml DAILY PRN PO 11/24/17 15:15 (NS Flush) 2 ml UNSCH PRN IV FLUSH 11/24/17 19:00 (NS Flush) 2 ml BID IV FLUSH 11/24/17 21:00 11/25/17 09:40 (Ativan) 2 mg HS PRN PO 11/24/17 21:00 11/24/17 22:03 (Symbicort 160-4.5 Mcg Inh) 2 puff BID INH 11/24/17 22:00 (Cozaar) 100 mg DAILY PO 11/25/17 09:00 11/25/17 11:05 (Protonix) 40 mg DAILY PO 11/25/17 09:00 11/25/17 09:40 (Catapres) 0.1 mg Q8HR PO 11/25/17 14:00 Family Psych History No family psychiatric history Social History Patient was born and raised in [facility], she is Mandaen descending, she has been living in [facility] alone, she is , her highest level of education is University Patient's Strengths (min. 2) There is no sign of dementia Physical Exam No tremors, no EPS, no psychomotor agitation or retardation Vital Signs Vital Signs Date Time Temp Pulse Resp B/P (MAP) Pulse Ox O2 Delivery O2 Flow Rate FiO2 11/25/17 10:32 98 21 11/25/17 08:45 97.3 70 18 155/83 (107) 11/24/17 22:40 Nasal Cannula 3.00 I/O 11/25/17 11/25/17 11/26/17 08:00 16:00 00:00 Intake Total 240 ml Balance 240 ml Lab Results Test 11/24/17 18:33 11/24/17 21:15 11/25/17 00:10 11/25/17 05:14 Total Creatine Kinase 46 U/L 68 U/L Troponin I 0.33 NG/ML 0.24 NG/ML White Blood Count 8.7 TH/MM3 9.0 TH/MM3 Red Blood Count 2.35 MIL/MM3 2.42 MIL/MM3 Hemoglobin 7.0 GM/DL 7.3 GM/DL Hematocrit 20.7 % 21.6 % Mean Corpuscular Volume 88.3 FL 89.1 FL Mean Corpuscular Hemoglobin 29.8 PG 30.0 PG Mean Corpuscular Hemoglobin Concent 33.7 % 33.6 % Red Cell Distribution Width 17.4 % 17.2 % Platelet Count 474 TH/MM3 481 TH/MM3 Mean Platelet Volume 7.1 FL 7.1 FL Neutrophils (%) (Auto) 75.2 % 79.0 % Lymphocytes (%) (Auto) 14.9 % 12.3 % Monocytes (%) (Auto) 8.2 % 7.0 % Eosinophils (%) (Auto) 0.9 % 0.9 % Basophils (%) (Auto) 0.8 % 0.8 % Neutrophils # (Auto) 6.5 TH/MM3 7.1 TH/MM3 Lymphocytes # (Auto) 1.3 TH/MM3 1.1 TH/MM3 Monocytes # (Auto) 0.7 TH/MM3 0.6 TH/MM3 Eosinophils # (Auto) 0.1 TH/MM3 0.1 TH/MM3 Basophils # (Auto) 0.1 TH/MM3 0.1 TH/MM3 CBC Comment DIFF FINAL AUTO DIFF Differential Comment FINAL DIFF MANUAL Differential Total Cells Counted 100 Neutrophils % (Manual) 72 % Band Neutrophils % 1 % Lymphocytes % 15 % Monocytes % 9 % Eosinophils % 1 % Neutrophils # (Manual) 6.8 TH/MM3 Myelocytes 2 % Platelet Estimate HIGH Platelet Morphology Comment NORMAL Test 11/25/17 05:17 Blood Urea Nitrogen 18 MG/DL Creatinine 0.92 MG/DL Random Glucose 93 MG/DL Calcium Level 8.6 MG/DL Sodium Level 141 MEQ/L Potassium Level 4.0 MEQ/L Chloride Level 109 MEQ/L Carbon Dioxide Level 25.6 MEQ/L Anion Gap 6 MEQ/L Estimat Glomerular Filtration Rate 58 ML/MIN Mental Status Examination Appearance: Appropriate Consciousness: Alert Orientation: x4 Motor Activity: Normal gait Speech: Unremarkable Language: Adequate Fund of Knowledge: Adequate Attention and Concentration: Adequate Memory: Unremarkable Mood: Sad, Other (dysthymic) Affect: Sad Thought Process & Associations: Intact Thought Content: Appropriate Hallucination Type: None Delusion Type: None Suicidal Ideation: Yes Suicidal Plan: No Suicidal Intention: No Homicidal Ideation: No Homicidal Plan: No Homicidal Intention: No Insight: Poor Judgment: Poor Assessment & Plan Problem List: (1) Major depressive disorder, recurrent ICD Codes: F33.9 - Major depressive disorder, recurrent, unspecified Assessment & Plan: Psychotic evaluation the patient presents symptoms of depression consisting on catastrophic thinking, anhedonia, hopelessness, helplessness, suicidal ideation that has led to a recent suicidal attempt. This patient has an elevated risk of danger to self. She needs psychiatric hospitalization for stabilization and safety. I will start citalopram 10 mg daily for depression. Patient is to be transferred to psychiatry once medically stable. Brief supportive psychotherapy, delusional psycho location provided. I will follow-up. Assessment & Plan Estimated LOS: Genaro Hill MD Nov 25, 2017 14:08
--- NOTE | 2017-11-25 14:49 | EKG ---
Date Performed: 11/24/2017 Time Performed: 12:24:16 PTAGE: 82 years EKG: Sinus rhythm POSSIBLE LEFT ATRIAL ENLARGEMENT LEFT VENTRICULAR HYPERTROPHY AND ST-T CHANGE POSSIBLE SEPTAL MYOCAR DIAL INFARCTION LATERAL MYOCARDIAL INFARCTION ABNORMAL ECG PREVIOUS TRACING : 10/06/[address] elevation in V1 is new since the prior tracing. ST depre ssion anterolaterally is more prominent since the prior tracing with prominent T-waves in V1 and aVL. Probable lateral myocardial infarction compared to the prior tracing. Clinical correlation is recomm ended. DOCTOR: George Baxter Interpretating Date/Time 11/25/2017 14:42:33
--- NOTE | 2017-11-25 14:52 | EKG ---
Date Performed: 11/24/2017 Time Performed: 18:28:02 PTAGE: 82 years EKG: Sinus rhythm BORDERLINE LEFT AXIS DEVIATION LEFT VENTRICULAR HYPERTROPHY AND ST-T CHANGE ABNORMAL ECG PREVIOUS TRACING : 11/24/[address] elevation in the anterior precordium with dep ression laterally. T-waves in V1 and aVL have largely resolved. Clinical correlation is recommended. DOCTOR: George Baxter Interpretating Date/Time 11/25/2017 14:44:18
--- NOTE | 2017-11-25 14:53 | EKG ---
Date Performed: 11/25/2017 Time Performed: 00:13:41 PTAGE: 82 years EKG: Sinus rhythm BORDERLINE LEFT AXIS DEVIATION LEFT VENTRICULAR HYPERTROPHY AND ST-T CHANGE ABNORMAL ECG NO PREVIOUS TRACING ST changes somewhat less prominent compared to the prior tracing. DOCTOR: George Baxter Interpretating Date/Time 11/25/2017 14:45:29
[2017-11-25] MEDS ORDERED: cloNIDine HCL 0.1 MG TAB PO ONE (15:15)
[2017-11-25] MEDS ORDERED: ENALAPRILAT 1.25 MG/ML VIAL IV PUSH PRN (17:30)
[2017-11-25] MEDS: cloNIDine HCL 0.2 MG TAB PO SCH (20:09)
[2017-11-25] MEDS: LORazepam 2 MG TAB PO PRN (20:17)
[2017-11-26] VITALS (13 sets, daily range): BP systolic 138–185; BP diastolic 72–90; PULSE 71–98; RESP 16–20; TEMP 97.1–98.4; O2SAT 95–100
[2017-11-26] MEDS: ACETAMINOPHEN 325 MG TAB PO PRN ×4 (00:53→23:20)
[2017-11-26] MEDS: ONDANSETRON HCL 4 MG/2 ML VIAL IVP PRN ×2 (02:18→20:53)
--- NOTE | 2017-11-26 05:33 | MB ---
cc: NICOLE PUENTE DATE OF CONSULTATION 11/25/2017 HISTORY OF PRESENT ILLNESS Ms. Kamara is an 82-year-old white female, a patient of Dr. Montoya, with a history of myocardial infarction, coronary artery disease, COPD on home oxygen and peripheral vascular disease. She was recently hospitalized at [facility] with lower GI bleeding. She had two colonoscopies and the source of bleeding was cauterized. She was transfused. Last night she developed recurrent bleeding and the patient was upset, anxious and depressed. The patient was severely depressed and cut herself. The patient was to be on Plavix which was discontinued. She is still on a baby aspirin. PAST MEDICAL HISTORY 1. Positive for myocardial infarction. Cardiac catheterization in February 2017 showed 50% mid-LAD, severe 90% stenosis of the left circumflex artery with BMS deployed and 40 and 50% stenosis of the right coronary artery. Echocardiogram in December of 2016 showed ejection fraction of 60-65% with left ventricular dysfunction, severe LVH, mild mitral regurgitation, mild tricuspid regurgitation. 2. Positive for hypertension. 3. Dyslipidemia. 4. Peripheral vascular disease. She is supposed to see Dr. Gavin. 5. History of uterine cancer. Hysterectomy, radiation. 6. Depression with the of her . 7. Arthritis. 8. Psoriasis. 9. History of atrial fibrillation for which she was seen by Dr. Maurice. She is supposed to undergo Watchman procedure. MEDICATIONS 1. Prevagen. 2. Vitamins. 3. Clonidine. 4. Benicar. 5. Linzess. 6. Potassium. 7. Hydrochlorothiazide. 8. Oxygen. 9. Baby aspirin. 10. Multivitamin. 11. Ocuvite. 12. Fish oil. 13. Vitamin D. 14. Lorazepam. 15. Advair Diskus. ALLERGIES ATENOLOL. ATORVASTATIN. DILTIAZEM. DIPHENHYDRAMINE. DOXYCYCLINE. MINOCYCLINE. MINOXIDIL. NITROGLYCERIN. TIGECYCLINE. SOCIAL HISTORY The patient quit smoking 6 months ago. She does not drink alcohol. FAMILY HISTORY N Negative for heart disease. REVIEW OF SYSTEMS Otherwise negative. PHYSICAL EXAMINATION VITAL SIGNS: Blood pressure 197/101, pulse 82 and regular. HEENT: Negative. NECK: 2+ carotid upstrokes. No bruits. LUNGS: Clear. HEART: Regular with a 1/6 systolic murmur at the left lateral sternal border. No gallop. ABDOMEN: Soft. No bruits. EXTREMITIES: Without edema. 2+ distal pulses. NEUROLOGICAL EXAMINATION: Grossly nonfocal. EKG Reviewed and showed normal sinus rhythm, normal axis, LVH with secondary ST-T changes. LABORATORY DATA Hemoglobin 7.3, potassium 4.0, creatinine 0.98, ALT and AST normal. Troponin 0.34, 0.33 and 0.24. DIAGNOSES 1. Lower GI bleeding. 2. Coronary artery disease. History of left circumflex stenting. 3. Hypertension. 4. Paroxysmal atrial fibrillation. 5. Depression. 6. Mildly elevated troponin. 7. Hypertension. DISPOSITION Ms. Kamara will be monitored on telemetry. At this time she has no angina or heart failure symptoms. She has mild elevation of the troponin but without significant trend. Her presentation is not consistent with acute coronary syndrome. I recommend to continue her current medical program including modification of cardiac risk factors and therapy with baby aspirin. She will stay off Plavix due to recent GI bleeding. She is supposed to undergo Watchman placement by Dr. Maurice to decrease the chance of strokes since she will not be able to be on anticoagulation for her paroxysmal atrial fibrillation. I will follow her for cardiology during her hospitalization. She will see Dr. Montoya, her primary oracle dba, in his office after discharge. Nicole Puente MD OQ/SSB /7:07 PM /5:06 AM
[2017-11-26] MEDS: cloNIDine HCL 0.2 MG TAB PO SCH ×3 (06:16→21:16)
[2017-11-26 07:53] LABS: AUTOMATED NEUTROPHIL # 8.4 TH/MM3 (1.8-7.7); BASOPHIL # 0.1 TH/MM3 (0-0.2); BASOPHIL % 0.8 % (0.0-2.0); EOSINOPHIL # 0.1 TH/MM3 (0-0.4); EOSINOPHIL % 0.9 % (0.0-4.0); HEMATOCRIT 22.6 % (35.0-46.0); HEMOGLOBIN 7.6 GM/DL (11.6-15.3); LYMPH % 10.1 % (9.0-44.0); MEAN CELL VOLUME 90.4 FL (80.0-100.0); MEAN CORPUSCULAR HEMOGLOBIN 30.5 PG (27.0-34.0); MEAN CORPUSCULAR HGB CONC 33.8 % (32.0-36.0); MEAN PLATELET VOLUME 6.9 FL (7.0-11.0); MONO % 6.7 % (0.0-8.0); MONOCYTE # 0.7 TH/MM3 (0-0.9); NEUT % 81.5 % (16.0-70.0); PLATELET COUNT 509 TH/MM3 (150-450); RED BLOOD COUNT 2.49 MIL/MM3 (4.00-5.30); RED CELL DISTRIBUTION WIDTH 17.3 % (11.6-17.2); WHITE BLOOD COUNT 10.3 TH/MM3 (4.0-11.0)
[2017-11-26] MEDS: PANTOPRAZOLE SOD 40 MG DELAYED RELEASE TAB PO SCH (08:56)
[2017-11-26] MEDS: LOSARTAN 50 MG TAB PO SCH (08:56)
[2017-11-26] MEDS: SODIUM CHLORIDE 0.9% FLUSH 10 ML FLUSH IV FLUSH SCH ×2 (08:57→20:54)
[2017-11-26] MEDS: DOCUSATE SODIUM 50 MG/SENNA 8.6 MG TAB PO SCH ×2 (08:57→21:16)
[2017-11-26] MEDS: BUDESONIDE-FORMOTEROL 160/4.5 MCG INHALER INH SCH ×2 (08:58→21:00)
--- NOTE | 2017-11-26 15:15 | PD.CONS ---
HPI History of Present Illness This is a 82 year old female with hx colonic and duodenal AVMs who presented as Mccullough act after she cut her wrists. GI has been consulted for GIB. 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 When pt got home she had urge to have a BM and in the bathroom noticed dark red rectal bleeding. She said this depressed her to the point she decided to slit her wrists. "The dark moment passed and then the police came." She denies any bleeding since that one episode. She tells me she does not want any endoscopic procedures and she is aware it is her right to refuse them. Prior to her recent hospitalization she was on plavix but she has not had it since 11/16/17. (Gabrielle Barrientos) PFSH Past Medical History htn cad - s/p stent last may 2017 afib - Dr Maurice copd - on home oxygen 3L at night LLE PAD- pending further vascular sx eval for putting a stent there per pt- Dr Isaacs (has apt with him and US tomorrow) hx of 2003 of uterine cancer- s/p hysterectomy and radiation depression since of heart murmur Osteoarthritis Psoriasis Past Surgical History hysterectomy appendectomy cholecystectomy tonsilectomy angiogram with stent (Gabrielle Barrientos) Coded Allergies: atenolol (Unverified Allergy, Severe, Rash, 05/25/17) atorvastatin (Unverified Allergy, Severe, ALL CHOLESTEROL MEDS N/V, ) diltiazem (Unverified Allergy, Severe, Rash, 05/25/17) diphenhydramine (Unverified Allergy, Severe, ALL ANTIHISTAMINES - CRAMPS, 05/25/17) doxycycline (Unverified Allergy, Severe, Rash, 05/25/17) minocycline (Unverified Allergy, Severe, Rash, 05/25/17) minoxidil (Unverified Allergy, Severe, 05/25/17) nitroglycerin (Unverified Allergy, Severe, Headache, 05/25/17) tigecycline (Unverified Allergy, Severe, Rash, 05/25/17) Uncoded Allergies: ACIDIC FOODS (Adverse Reaction, Intermediate, SKIN BREAK OUTS, 01/12/06) UTENOL (Adverse Reaction, Intermediate, RASH AND JOINT PAIN, 01/12/06) Family History none that she knows of mom lived till 85 yo Social History quit smoking 6 months ago no etoh abuse no drugs abuse lives with 2 dogs, 's children are in [place] still driving (Gabrielle Barrientos) Review of Systems Constitutional: DENIES: Fever Endocrine: DENIES: Polydipsia Eyes: DENIES: Blurred vision Ears, nose, mouth, throat: DENIES: Hearing loss Respiratory: DENIES: Cough Cardiovascular: DENIES: Chest pain Gastrointestinal: DENIES: Abdominal pain, Black stools, Bloody stools, Nausea, Vomiting (Gabrielle Barrientos) GI Exam Vitals I&O Vital Signs Date Time Temp Pulse Resp B/P (MAP) Pulse Ox O2 Delivery O2 Flow Rate FiO2 11/26/17 12:00 82 11/26/17 11:00 97.1 71 20 160/88 (112) 100 11/26/17 08:50 95 21 11/26/17 08:00 98.2 81 20 138/74 (95) 99 11/26/17 08:00 78 11/26/17 05:00 98.0 87 20 153/89 (110) 100 11/26/17 00:00 98.0 98 20 185/90 (121) 100 11/25/17 21:35 Nasal Cannula 2.00 11/25/17 20:00 98.0 82 20 162/81 (108) 100 11/25/17 18:00 90 11/25/17 17:00 88 11/25/17 16:25 82 20 197/101 (133) 100 11/25/17 16:00 84 I/O 11/25/17 11/25/17 11/25/17 11/26/17 11/26/17 11/26/17 07:00 15:00 23:00 07:00 15:00 23:00 Intake Total 240 ml 840 ml Balance 240 ml 840 ml Intake Oral 240 ml 840 ml # Voids 1 5 # Bowel Movements 0 Laboratory Test 11/26/17 06:25 White Blood Count 10.3 TH/MM3 Red Blood Count 2.49 MIL/MM3 Hemoglobin 7.6 GM/DL Hematocrit 22.6 % Mean Corpuscular Volume 90.4 FL Mean Corpuscular Hemoglobin 30.5 PG Mean Corpuscular Hemoglobin Concent 33.8 % Red Cell Distribution Width 17.3 % Platelet Count 509 TH/MM3 Mean Platelet Volume 6.9 FL Neutrophils (%) (Auto) 81.5 % Lymphocytes (%) (Auto) 10.1 % Monocytes (%) (Auto) 6.7 % Eosinophils (%) (Auto) 0.9 % Basophils (%) (Auto) 0.8 % Neutrophils # (Auto) 8.4 TH/MM3 Lymphocytes # (Auto) 1.0 TH/MM3 Monocytes # (Auto) 0.7 TH/MM3 Eosinophils # (Auto) 0.1 TH/MM3 Basophils # (Auto) 0.1 TH/MM3 CBC Comment DIFF FINAL Differential Comment Physical Examination HEENT: PERRL; normocephalic; atraumatic; no jaundice. CHEST: CTA CARDIAC: RRR ABDOMEN: Soft, nondistended, nontender; no hepatosplenomegaly; bowel sounds are present in all four quadrants. EXTREMITIES: No clubbing, cyanosis, or edema. SKIN: Normal; no rash; no jaundice. INSULATION PACKER: No focal deficits; alert and oriented times three. (Gabrielle Barrientos) Assessment and Plan Plan ASSESSMENT - Rectal bleeding - likely 2/2 AVMs. recent colonoscopy 11/17 found AVMs with stigmata recent bleeding, s/p fulguration. EGD at that time found nonbleeding duodenal AVM that was cauterized. Pt had episode dark rectal bleeding soon after d/c and none since. she is refusing any endoscopic procedures. She wants to f/u with Dr Nicholson in the office PLAN - monitor for bleeding - monitor HH - transfuse as needed - f/u with Dr Nicholson after d/c - supportive care pt seen by myself and Dr Alvarado and this note is written on his behalf (Gabrielle Barrientos) Physician Comments Patient seen and examined Agree with above Continue with current supportive care Monitor labs Patient refusing endoscopy at this point and wants to follow up with her study assistant I would recommend that she be transfused with blood to above 8 I would recommend that she gets iron transfusions or iron supplementation Not much to add from a GI perspective at this point No evidence of any active GI bleed We will sign off (Chauncey Alvarado MD) Gabrielle Barrientos Nov 26, 2017 15:15 Chauncey Alvarado MD Nov 26, 2017 18:40
[2017-11-26 16:24] LABS: FOLATE 18.2 NG/ML (3.1-17.5)
--- NOTE | 2017-11-26 17:16 | PD.CARD.PN ---
Subjective Subjective Remarks No CP or SOB, wishes to go home Objective Medications Current Medications Medications (Trade) Dose Ordered Sig/Velma Route Start Time Stop Time Status Last Admin (Tylenol) 650 mg Q4H PRN PO 11/24/17 15:15 11/26/17 16:02 (Zofran Inj) 4 mg Q6H PRN IVP 11/24/17 15:15 11/26/17 02:18 (Narcan Inj) 0.4 mg UNSCH PRN IV PUSH 11/24/17 15:15 (Sarah-Colace) 1 tab BID PO 11/24/17 21:00 11/26/17 08:57 (Milk Of Magnesia Liq) 30 ml Q12H PRN PO 11/24/17 15:15 (Senokot) 17.2 mg Q12H PRN PO 11/24/17 15:15 (Dulcolax Supp) 10 mg DAILY PRN RECTAL 11/24/17 15:15 (Lactulose Liq) 30 ml DAILY PRN PO 11/24/17 15:15 (NS Flush) 2 ml UNSCH PRN IV FLUSH 11/24/17 19:00 (NS Flush) 2 ml BID IV FLUSH 11/24/17 21:00 11/26/17 08:57 (Ativan) 2 mg HS PRN PO 11/24/17 21:00 11/25/17 20:17 (Symbicort 160-4.5 Mcg Inh) 2 puff BID INH 11/24/17 22:00 (Cozaar) 100 mg DAILY PO 11/25/17 09:00 11/26/17 08:56 (Protonix) 40 mg DAILY PO 11/25/17 09:00 11/26/17 08:56 (Catapres) 0.2 mg Q8HR PO 11/25/17 22:00 11/26/17 16:01 (Vasotec Inj) 1.25 mg Q8H PRN IV PUSH 11/25/17 17:30 11/26/17 00:53 Vital Signs / I&O Vital Signs Date Time Temp Pulse Resp B/P (MAP) Pulse Ox O2 Delivery O2 Flow Rate FiO2 11/26/17 16:00 98.0 83 18 144/82 (102) 98 11/26/17 12:00 82 11/26/17 11:00 97.1 71 20 160/88 (112) 100 11/26/17 08:50 95 21 11/26/17 08:00 98.2 81 20 138/74 (95) 99 11/26/17 08:00 78 11/26/17 05:00 98.0 87 20 153/89 (110) 100 11/26/17 00:00 98.0 98 20 185/90 (121) 100 11/25/17 21:35 Nasal Cannula 2.00 11/25/17 20:00 98.0 82 20 162/81 (108) 100 11/25/17 18:00 90 I/O 11/25/17 11/25/17 11/25/17 11/26/17 11/26/17 11/26/17 07:00 15:00 23:00 07:00 15:00 23:00 Intake Total 240 ml 840 ml Balance 240 ml 840 ml Intake Oral 240 ml 840 ml # Voids 1 5 # Bowel Movements 0 Physical Exam GENERAL: In NAD SKIN: Warm and dry. HEAD: Normocephalic. EYES: No scleral icterus. No injection or drainage. NECK: Supple, trachea midline. No JVD or lymphadenopathy. CARDIOVASCULAR: Regular rate and rhythm without murmurs, gallops, or rubs. RESPIRATORY: Breath sounds equal bilaterally. No accessory muscle use. GASTROINTESTINAL: Abdomen soft, non-tender, nondistended. MUSCULOSKELETAL: No cyanosis, or edema. Laboratory Laboratory Tests Test 11/26/17 06:25 11/26/17 15:11 White Blood Count 10.3 TH/MM3 Red Blood Count 2.49 MIL/MM3 Hemoglobin 7.6 GM/DL Hematocrit 22.6 % Mean Corpuscular Volume 90.4 FL Mean Corpuscular Hemoglobin 30.5 PG Mean Corpuscular Hemoglobin Concent 33.8 % Red Cell Distribution Width 17.3 % Platelet Count 509 TH/MM3 Mean Platelet Volume 6.9 FL Neutrophils (%) (Auto) 81.5 % Lymphocytes (%) (Auto) 10.1 % Monocytes (%) (Auto) 6.7 % Eosinophils (%) (Auto) 0.9 % Basophils (%) (Auto) 0.8 % Neutrophils # (Auto) 8.4 TH/MM3 Lymphocytes # (Auto) 1.0 TH/MM3 Monocytes # (Auto) 0.7 TH/MM3 Eosinophils # (Auto) 0.1 TH/MM3 Basophils # (Auto) 0.1 TH/MM3 CBC Comment DIFF FINAL Differential Comment Iron Level 33 MCG/DL Transferrin 276 MG/DL Ferritin 375 NG/ML Vitamin B12 Level 708 PG/ML Folate 18.2 NG/ML Assessment and Plan Problem List: (1) GI bleed ICD Codes: K92.2 - Gastrointestinal hemorrhage, unspecified (2) Atypical chest pain ICD Codes: R07.89 - Other chest pain (3) Elevated troponin ICD Codes: R74.8 - Abnormal levels of other serum enzymes Status: Acute (4) Major depressive disorder, recurrent ICD Codes: F33.9 - Major depressive disorder, recurrent, unspecified (5) Suicide attempt ICD Codes: T14.91XA - Suicide attempt, initial encounter Status: Acute Assessment and Plan No new cardiac issues. Continue current program. No recurrent GIB. OK to discharge from cardiac standpoint. F/u w Dr. Montoya as outpt. Nicole Shirley MD Nov 26, 2017 17:16
--- NOTE | 2017-11-26 18:26 | HHI.PR ---
Objective Vitals Vital Signs Date Time Temp Pulse Resp B/P (MAP) Pulse Ox O2 Delivery O2 Flow Rate FiO2 11/26/17 16:00 98.0 83 18 144/82 (102) 98 11/26/17 12:00 82 11/26/17 11:00 97.1 71 20 160/88 (112) 100 11/26/17 08:50 95 21 11/26/17 08:00 98.2 81 20 138/74 (95) 99 11/26/17 08:00 78 11/26/17 05:00 98.0 87 20 153/89 (110) 100 11/26/17 00:00 98.0 98 20 185/90 (121) 100 11/25/17 21:35 Nasal Cannula 2.00 11/25/17 20:00 98.0 82 20 162/81 (108) 100 I/O 11/25/17 11/25/17 11/25/17 11/26/17 11/26/17 11/26/17 07:00 15:00 23:00 07:00 15:00 23:00 Intake Total 240 ml 840 ml Balance 240 ml 840 ml Intake Oral 240 ml 840 ml # Voids 1 5 # Bowel Movements 0 Result Diagram: 11/26/17 0625 11/25/17 0517 Edmond Adams MD Nov 26, 2017 18:26
[2017-11-26] MEDS: LORazepam 2 MG TAB PO PRN (21:18)
[2017-11-27] VITALS (10 sets, daily range): BP systolic 152–157; BP diastolic 65–80; PULSE 68–79; RESP 16; TEMP 97–97.4; O2SAT 100
[2017-11-27 12:05] LABS: AUTOMATED NEUTROPHIL # 12.5 TH/MM3 (1.8-7.7); BASOPHIL # 0.1 TH/MM3 (0-0.2); BASOPHIL % 0.9 % (0.0-2.0); EOSINOPHIL % 0.2 % (0.0-4.0); HEMATOCRIT 29.6 % (35.0-46.0); HEMOGLOBIN 9.8 GM/DL (11.6-15.3); LYMPH % 3.8 % (9.0-44.0); LYMPHOCYTE # 0.5 TH/MM3 (1.0-4.8); MEAN CELL VOLUME 90.1 FL (80.0-100.0); MEAN CORPUSCULAR HGB CONC 33.3 % (32.0-36.0); MEAN PLATELET VOLUME 6.7 FL (7.0-11.0); MONO % 4.4 % (0.0-8.0); MONOCYTE # 0.6 TH/MM3 (0-0.9); NEUT % 90.7 % (16.0-70.0); PLATELET COUNT 587 TH/MM3 (150-450); RED BLOOD COUNT 3.29 MIL/MM3 (4.00-5.30); RED CELL DISTRIBUTION WIDTH 17.2 % (11.6-17.2); WHITE BLOOD COUNT 13.7 TH/MM3 (4.0-11.0)
== END 2017-11-27 05:08 | disposition home or self-care (01) ==
LOC: NEPE 11:25 → NEDA 15:02 → NEDH 19:16 → HCIS 11-25 00:28
PROVIDERS: ADMIT Hospitalist; ATTEND Hospitalist
DX: T14.91XA Suicide attempt, initial encounter (principal); S61.512A Laceration without foreign body of left wrist, initial encounter; S61.511A Laceration without foreign body of right wrist, initial encounter; X78.8XXA Intentional self-harm by other sharp object, initial encounter; Y92.009 Unspecified place in unspecified non-institutional (private) residence as the place of occurrence of the external cause; K31.819 Angiodysplasia of stomach and duodenum without bleeding; K57.10 Diverticulosis of small intestine without perforation or abscess without bleeding; F33.9 Major depressive disorder, recurrent, unspecified; I25.10 Atherosclerotic heart disease of native coronary artery without angina pectoris; J44.9 Chronic obstructive pulmonary disease, unspecified; R01.1 Cardiac murmur, unspecified; I08.1 Rheumatic disorders of both mitral and tricuspid valves; I10 Essential (primary) hypertension; I73.9 Peripheral vascular disease, unspecified; I48.0 Paroxysmal atrial fibrillation; R74.8 Abnormal levels of other serum enzymes; Z99.81 Dependence on supplemental oxygen; Z85.42 Personal history of malignant neoplasm of other parts of uterus; Z87.891 Personal history of nicotine dependence; Z79.899 Other long term (current) drug therapy
CPT/HCPCS: 36430; 80048; 80053; 80307; 81001; 82550; 82607; 82728; 82746; 83540; 84443; 84466; 84484; 85007; 85025; 85027; 86850; 86880; 86900; 86901; 86902; 86920; 86921; 86922; 93005; 96374; 96376; 99285; G0378; J2405; P9016; P9612

== ENCOUNTER 2017-11-26 17:58 | Inpatient (IN) | payer MEDICARE, OTHER ==
[~2017-11-26 17:58] MED LIST changes: +ADVA500A INH; +AMLO5TAB2 PO; +BENI40TA29 PO; +CLON0.2T PO; +CLON0.3T PO; +EZET10 PO; +HYDR12.57 PO; +KLOR10TA PO; +LORA2TAB7 PO
[2017-11-27 06:33] VITALS: BP 147/67; PULSE 99; RESP 18; TEMP 98.9; O2SAT 93
[2017-11-27] MEDS ORDERED: ALUMINUM/MAGNESIUM/SIMETH 30 ML CUP PO PRN (08:30)
[2017-11-27] MEDS ORDERED: MAGNESIUM HYDROXIDE SUSP 30 ML CUP PO PRN (08:30)
[2017-11-27] MEDS ORDERED: hydrOXYzine HCL 50 MG TAB PO PRN (08:30)
--- NOTE | 2017-11-27 08:35 | HHI.HP ---
Provisional Diagnosis Admission Date Nov 27, 2017 at 05:21 [place] I. Major depressive disorder recurrent severe without psychosis f 33.2 Certification of Person's Competence To Provide Express and Informed Consent I have personally examined Huyen Kamara , a person being served at [facility] on, Nov 27, 2017 08:24. Express and informed consent means consent voluntarily given in writing, by a competent person, after sufficient explanation and disclosure of the subject matter involved to enable the person to make a knowing and willful decision without any element of force, fraud, deceit, duress, or other form of constraint or coercion. This person is 18 years of age or older, is not now known to be incompetent to consent to treatment with a guardian advocate, and does not have a health care surrogate or proxy currently making medical treatment decisions. I have found this person to be one of the following: [xxx] Competent to provide express and informed consent, as defined above, for voluntary admission to this facility and is competent to provide express and informed consent for treatment. He/she has the consistent capacity to make well reasoned, willful, and knowing decisions concerning his or her medical or mental health treatment. The person fully and consistently understands the purpose of the admission for examination/placement and is fully capable of personally exercising all rights assured [place] Incompetent to provide express and informed consent to voluntary admission, and this is incompetent to provide express and informed consent to treatment. The person must be transferred to involuntary status and a petition for a guardian advocate filed with the Circuit Court. [] Refusing to provide express and informed consent to voluntary admission but is competent to provide express and informed consent for treatment. The person must be discharged or transferred to involuntary status. Form shall be completed within 24 hours of a person's arrival at the receiving facility and filed in the clinical record of each person: 1. Admitted on a voluntary basis 2. Permitted to provide express and informed consent to his/her own treatment 3. Allowed to transfer from involuntary to voluntary status 4. Prior to permitting a person to consent to his or her own treatment after having been previously found incompetent to consent to treatment. History of Present Illness Capacity: Has Capacity HPI Patient is an 82-year-old white female initially came here under Mccullough act after making suicidal notes scratching at her wrists and leading a gas grill. She was seen be having GI bleed she was admitted 11/24/17 through 11/27/17 under visit [id number] on the medicine side she was seen in consultation by Dr. Lira. He did recommend transfer the psychiatric unit are [facility] unit on medically appropriate. She was transferred here today. Dr. Lira recommended citalopram 10 mg a.m. added to the regimen. At the present time patient laying quietly in her bed she does have a sitter present also present was nurse Rama. Patient alert oriented white female appears about her stated age born in [place] though raise to this country. Been for about 7 years. States she did have an episode of depression about 7 years ago was seen by a psychiatrist in the community was hospitalized here overnight and discharged has not followed up with any mental health worker since then. Patient states of a more immediacy of the furniture for his past we will the past few days she became depressed over that developing the suicidal ideation scratching at her wrists and sending messages to her stepchildren. The patient scratched at her wrists she saw the blood and realizing did not want to do this stopped her behaviors clean the wounds off laid down. Of interest the patient lives in [place]. The police have a program for senior citizens where they call the citizen and if this isn't does not respond to send an officer to check on them this occurred with the patient relating to her coming in here. However the present time patient denies any suicidal ideation intent or plan she show some insight into the impulsiveness all this she still contracted to no harm. She does deny voices or visions with this denies alcohol or drug use with this. She lives by herself though she has 2 dogs that she appears to be quite attached to. And her to stepchildren from her are quite close and supportive with her also. Patient denies any physical or sexual abuse. Denies any mental health issues in the family. At this time patient does meet criteria for further observation assessment. Boyfriend she does have capacity to sign for her medications. Thus I'll lift Mccullough act allow the patient sign voluntary. We'll start her on her citalopram. We will have the medicine service also follow-up with this patient the right the admitting medical orders for her here the [facility] unit. Hopeless to be short stay patient returned to the community with appropriate follow-up Review of Systems Constitutional: DENIES: Diaphoretic episodes, Fatigue, Fever, Weight gain, Weight loss, Chills, Dizziness, Change in appetite, Night Sweats Endocrine: DENIES: Abnorml menstrual pattern, Heat/cold intolerance, Polydipsia , Polyuria, Polyphagia Eyes: DENIES: Blurred vision, Diplopia, Eye inflammation, Eye pain, Vision loss , Photosensitivity, Double Vision Ears, nose, mouth, throat: DENIES: Tinnitus, Hearing loss, Vertigo, Nasal discharge, Oral lesions, Throat pain, Hoarseness, Ear Pain, Running Nose, Epistaxis, Sinus Pain, Toothache, Odynophagia Respiratory: DENIES: Apneas, Cough, Snoring, Wheezing, Hemoptysis, Sputum production, Shortness of breath Cardiovascular: DENIES: Chest pain, Palpitations, Syncope, Dyspnea on Exertion , PND, Lower Extremity Edema, Orthopnea, Claudication Gastrointestinal: DENIES: Abdominal pain, Black stools, Bloody stools, Constipation, Diarrhea, Nausea, Vomiting, Difficulty Swallowing, Anorexia Genitourinary: DENIES: Abnormal vaginal bleeding, Dysmenorrhea, Dyspareunia, Sexual dysfunction, Urinary frequency, Urinary incontinence, Urgency, Hematuria , Dysuria, Nocturia, Vaginal discharge Integumentary: DENIES: Abnormal pigmentation, Pruritus, Rash, Nail changes, Breast masses, Breast skin changes, Nipple discharge Hematologic/lymphatic: DENIES: Bruising, Lymphadenopathy Immunologic/allergic: DENIES: Eczema, Urticaria Neurologic: DENIES: Abnormal gait, Headache, Localized weakness, Paresthesias, Seizures, Speech Problems, Tremor, Poor Balance Psychiatric: DENIES: Anxiety, Confusion, Mood changes, Depression, Hallucinations, Agitation, Suicidal Ideation, Homicidal Ideation, Delusions Past Psych History Psychological trauma history Patient denies Violence risk - others (6 mos) Low Violence risk - self (6 mos) Moderate Substance Abuse History Drugs/Alcohol past 12 months Denies Past Family Social History Coded Allergies: atenolol (Unverified Allergy, Severe, Rash, 05/25/17) atorvastatin (Unverified Allergy, Severe, ALL CHOLESTEROL MEDS N/V, ) diltiazem (Unverified Allergy, Severe, Rash, 05/25/17) diphenhydramine (Unverified Allergy, Severe, ALL ANTIHISTAMINES - CRAMPS, 05/25/17) doxycycline (Unverified Allergy, Severe, Rash, 05/25/17) minocycline (Unverified Allergy, Severe, Rash, 05/25/17) minoxidil (Unverified Allergy, Severe, 05/25/17) nitroglycerin (Unverified Allergy, Severe, Headache, 05/25/17) tigecycline (Unverified Allergy, Severe, Rash, 05/25/17) Uncoded Allergies: ACIDIC FOODS (Adverse Reaction, Intermediate, SKIN BREAK OUTS, 01/12/06) UTENOL (Adverse Reaction, Intermediate, RASH AND JOINT PAIN, 01/12/06) Reported Medications Potassium Chloride ER (Klor-Con 10) 10 Meq Tab, 10 MEQ PO DAILY for Electrolyte Replacement, #30 TAB 0 Refills 11/24/17 Hydrochlorothiazide (Hydrochlorothiazide) 12.5 Mg Cap, PO DAILY, #30 CAP 0 Refills 11/24/17 Fluticasone-Salmeterol Inh (Advair Diskus Inh) 500-50 Mcg/Blist Aer, 1 PUFF INH BID, #1 INHALER 0 Refills Rinse mouth after use. 11/24/17 Lorazepam (Lorazepam) 2 Mg Tab, 2 MG PO HS Y for ANXIETY AND/OR INSOMNIA, TAB 0 Refills 11/24/17 Olmesartan (Benicar) 40 Mg Tab, 40 MG PO DAILY for Blood Pressure Management, # 30 TAB 0 Refills 11/24/17 Clonidine (Clonidine) 0.2 Mg Tab, 0.2 MG PO QID for Blood Pressure Management, # 60 TAB 0 Refills 11/24/17 Clonidine (Clonidine) 0.3 Mg Tab, 0.3 MG PO HS for Blood Pressure Management, # 60 TAB 0 Refills 11/24/17 Discontinued Reported Medications Amlodipine (Amlodipine) 5 Mg Tab, 5 MG PO DAILY for Blood Pressure Management, # 30 TAB 0 Refills 11/24/17 Ezetimibe (Zetia) 10 Mg Tab, 10 MG PO DAILY, #30 TAB 0 Refills 11/24/17 Current Medications Medications (Trade) Dose Ordered Sig/Velma Route Start Time Stop Time Status Last Admin (Tylenol) 650 mg Q4H PRN PO 11/27/17 08:30 UNV (Milk Of Magnesia Liq) 30 ml DAILY PRN PO 11/27/17 08:30 UNV (Mag-Al Plus Susp Liq) 30 ml Q6H PRN PO 11/27/17 08:30 UNV (Atarax) 50 mg Q6H PRN PO 11/27/17 08:30 UNV Family Psych History Denies Social History Patient would've lives by herself with 2 pet dogs Patient's Strengths (min. 2) Patient verbal calm cooperative cognitively stable Physical Exam Patient medically cleared through med service. At the present time patient sitting quietly in bed she is calm cooperative in no pressure distress no complaints of abdominal pain. Patient laying in bed does move all extremities without difficulty in bed Vital Signs Vital Signs Date Time Temp Pulse Resp B/P (MAP) Pulse Ox O2 Delivery O2 Flow Rate FiO2 11/27/17 06:33 98.9 99 18 147/67 (93) 93 Mental Status Examination Appearance: Appropriate Consciousness: Alert Orientation: x4 Motor Activity: Normal gait (patient laying in bed left PT assess) Speech: Unremarkable Language: Adequate Fund of Knowledge: Adequate Attention and Concentration: Adequate Memory: Unremarkable Mood: Sad Affect: Other (slight decreased range and intensity) Thought Process & Associations: Intact Thought Content: Appropriate Hallucination Type: None Delusion Type: None Suicidal Ideation: No Suicidal Plan: No Suicidal Intention: No (denies at this time) Homicidal Ideation: No Homicidal Plan: No Homicidal Intention: No Insight: Adequate Judgment: Adequate Assessment & Plan Problem List: (1) Major depressive disorder, recurrent ICD Codes: F33.9 - Major depressive disorder, recurrent, unspecified Status: Chronic Assessment & Plan Estimated LOS: 3-5 days patient remains depressed though appears to be showing some improvement in insight into her issues. At this may feel patient meets criteria for inpatient assessment though I feel she has capacity thus I'll lift the Mccullough act allow her sign voluntary. With medicine service follow also per the protocols for the med psych unit. Discharge Planning Probable to return to her own home with her dogs and perhaps home health care Request HC Surrog/Guard Advoc?: No Problem Qualifiers (1) Major depressive disorder, recurrent: Qualified Codes: F33.2 - Major depressive disorder, recurrent severe without psychotic features Driss Teixeira MD Nov 27, 2017 08:35
[2017-11-27] MEDS: ACETAMINOPHEN 325 MG TAB PO PRN ×3 (08:56→21:21)
[2017-11-27] MEDS: CITALOPRAM HYDROBROMIDE 20 MG TAB PO SCH (08:56)
--- NOTE | 2017-11-27 11:41 | PD.CONS ---
[facility] By Dr. Driss Teixeira Reason for Consult To assist in management of medical condition patient known to you for medical admission needs to be seen today to continue medical management Primary Care Physician Non-Staff Diagnoses: History of Present Illness Patient is a 82-year-old female. He was just in the hospital under our service and was transferred to inpatient psychiatry yesterday under Mccullough act. Patient is now signed to make herself voluntary. Patient has a history of depression and possible thoughts of suicide and a plan Patient lives alone in her house with 2 dogs Had issues with anemia. Was transfused yesterday Laboratory data is still pending Review of Systems Constitutional: COMPLAINS OF: Fatigue, DENIES: Diaphoretic episodes, Fever, Weight gain, Weight loss, Chills, Dizziness, Change in appetite, Night Sweats Endocrine: DENIES: Abnorml menstrual pattern, Heat/cold intolerance, Polydipsia , Polyuria, Polyphagia Eyes: DENIES: Blurred vision, Diplopia, Eye inflammation, Eye pain, Vision loss , Photosensitivity, Double Vision Ears, nose, mouth, throat: DENIES: Tinnitus, Hearing loss, Vertigo, Nasal discharge, Oral lesions, Throat pain, Hoarseness, Ear Pain, Running Nose, Epistaxis, Sinus Pain Respiratory: DENIES: Apneas, Cough, Snoring, Wheezing, Hemoptysis, Sputum production, Shortness of breath Cardiovascular: DENIES: Chest pain, Palpitations, Syncope, Dyspnea on Exertion , PND, Lower Extremity Edema, Orthopnea, Claudication Gastrointestinal: DENIES: Abdominal pain, Black stools, Bloody stools, Constipation, Diarrhea, Nausea, Vomiting, Difficulty Swallowing Genitourinary: DENIES: Abnormal vaginal bleeding, Dysmenorrhea, Dyspareunia Musculoskeletal: DENIES: Joint pain, Muscle aches, Stiffness, Joint Swelling, Back pain, Neck pain Integumentary: DENIES: Abnormal pigmentation, Pruritus, Rash, Nail changes, Breast masses Hematologic/lymphatic: DENIES: Bruising, Lymphadenopathy Immunologic/allergic: DENIES: Eczema, Urticaria Neurologic: DENIES: Abnormal gait, Headache, Localized weakness, Paresthesias, Seizures, Speech Problems, Tremor, Poor Balance Psychiatric: COMPLAINS OF: Depression, Suicidal Ideation, DENIES: Anxiety, Confusion, Mood changes, Hallucinations, Agitation, Homicidal Ideation, Delusions Except as stated in HPI: all other systems reviewed are Neg Past Family Social History Allergies: Coded Allergies: atenolol (Unverified Allergy, Severe, Rash, 05/25/17) atorvastatin (Unverified Allergy, Severe, ALL CHOLESTEROL MEDS N/V, ) diltiazem (Unverified Allergy, Severe, Rash, 05/25/17) diphenhydramine (Unverified Allergy, Severe, ALL ANTIHISTAMINES - CRAMPS, 05/25/17) doxycycline (Unverified Allergy, Severe, Rash, 05/25/17) minocycline (Unverified Allergy, Severe, Rash, 05/25/17) minoxidil (Unverified Allergy, Severe, 05/25/17) nitroglycerin (Unverified Allergy, Severe, Headache, 05/25/17) tigecycline (Unverified Allergy, Severe, Rash, 05/25/17) Uncoded Allergies: ACIDIC FOODS (Adverse Reaction, Intermediate, SKIN BREAK OUTS, 01/12/06) UTENOL (Adverse Reaction, Intermediate, RASH AND JOINT PAIN, 01/12/06) Past Medical History Hypertension COPD on home oxygen 3 L by nasal cannula Anxiety Hyperlipidemia Depression History of myocardial infarction in 1995 and coronary artery disease GERD Diabetes mellitus Depression Tobacco abuse still smoking History of uterine cancer and history of chemotherapy status post radiation Atrial fibrillation seen by Dr. Maurice Left lower extremity peripheral arterial disease follow-up with Dr. Gavin Osteoarthritis Psoriasis Past Surgical History History of appendectomy in 1938 Cholecystectomy in 2000 Hysterectomy and bilateral oral salpingo-oophorectomy and January 2006 Bilateral breast cyst removal from her breast Coronary stenting last one in May 2017 Tonsillectomy Angiograms with stenting Reported Medications Reported Meds & Active Scripts Active Reported Klor-Con 10 (Potassium Chloride) 10 Meq Tab 10 Meq PO DAILY Hydrochlorothiazide 12.5 Mg Cap Unknown Dose PO DAILY Advair Diskus Inh (Fluticasone-Salmeterol Inh) 500-50 Mcg/Blist Aer 1 Puff INH BID Rinse mouth after use. Lorazepam 2 Mg Tab 2 Mg PO HS PRN Benicar (Olmesartan) 40 Mg Tab 40 Mg PO DAILY Clonidine (Clonidine HCl) 0.2 Mg Tab 0.2 Mg PO QID Clonidine (Clonidine HCl) 0.3 Mg Tab 0.3 Mg PO HS Active Ordered Medications Current Medications Acetaminophen (Tylenol) 650 mg Q4H PRN PO Pain 1-5 or Temp >101F Last administered on 11/27/17at 08:56; Start 11/27/17 at 08:30 Magnesium Hydroxide (Milk Of Magnesia Liq) 30 ml DAILY PRN PO CONSTIPATION; Start 11/27/17 at 08:30 Al Hydrox/Mg Hydrox/Simethicone (Mag-Al Plus Susp Liq) 30 ml Q6H PRN PO DYSPEPSIA; Start 11/27/17 at 08:30 Hydroxyzine HCl (Atarax) 50 mg Q6H PRN PO ANXIETY; Start 11/27/17 at 08:30 Citalopram Hydrobromide (CeleXA) 10 mg DAILY PO Last administered on 11/27/17at 08:56; Start 11/27/17 at 09:00 Family History Patient denies any psychiatric family history Mother lived until 85 Patient denies any family history of medical problems Social History Lives by herself with her 2 dogs in [place] Still smokes maybe half a pack a day Denies any alcohol denies any drug abuse Denies any other issues still actively driving Physical Exam Vital Signs Vital Signs Date Time Temp Pulse Resp B/P (MAP) Pulse Ox O2 Delivery O2 Flow Rate FiO2 11/27/17 06:33 98.9 99 18 147/67 (93) 93 Physical Exam GENERAL: This is a well-nourished, well-developed patient, in no apparent distress. Awake alert oriented talkative and cooperative SKIN: No rashes, ecchymoses or lesions. Cool and dry. HEAD: Atraumatic. Normocephalic. No temporal or scalp tenderness. EYES: Pupils equal round and reactive. Extraocular motions intact. No scleral icterus. No injection or drainage. ENT: Nose without bleeding, purulent drainage or septal hematoma. Throat without erythema, tonsillar hypertrophy or exudate. Uvula midline. Airway patent. NECK: Trachea midline. No JVD or lymphadenopathy. Supple, nontender, no meningeal signs. CARDIOVASCULAR: Regular rate and rhythm without murmurs, gallops, or rubs. S1 and S2 no S3 or S4 RESPIRATORY: Clear to auscultation. Breath sounds equal bilaterally. No wheezes , rales, or rhonchi. GASTROINTESTINAL: Abdomen soft, non-tender, nondistended. No hepato-splenomegaly , or palpable masses. No guarding. MUSCULOSKELETAL: Extremities without clubbing, cyanosis, or edema. No joint tenderness, effusion, or edema noted. No calf tenderness. Negative Homans sign bilaterally. NEUROLOGICAL: Awake and alert. Cranial nerves II through XII intact. Motor and sensory grossly within normal limits. Five out of 5 muscle strength in all muscle groups. Normal speech. Insight and judgment appears good Mood and behavior somewhat appropriate Assessment and Plan Assessment and Plan Anemia status post transfusion labs pending for tomorrow Anemia of chronic disease recent GI bleeding and been transfused yesterday Hypertension resume home medications Depression with suicidal ideation will defer to psychiatry continue on her medications per them GERD PPI as needed and or H2 ezequiel Osteoarthritis pain medications as needed COPD and tobacco abuse recommend smoking cessation will give a NicoDerm patch Recent GI bleeding Continue GI and DVT prophylaxis Code Status FULL CODE Discussed Condition With RN AND PT AND PSYCHIATRY Darvin Hutchinson DO Nov 27, 2017 11:41
[2017-11-27 14:20] VITALS: BP 168/82; PULSE 84; RESP 17; TEMP 97.9; O2SAT 97
[2017-11-27 14:35] VITALS: BP 199/89; PULSE 79; RESP 16; TEMP 97.6
[2017-11-27] MEDS: cloNIDine HCL 0.2 MG TAB PO SCH ×2 (15:35→19:39)
[2017-11-27 18:21] VITALS: BP 147/67; PULSE 99; RESP 18; TEMP 98.9; O2SAT 93
[2017-11-27] MEDS: BUDESONIDE-FORMOTEROL 160/4.5 MCG INHALER INH SCH (21:00)
[2017-11-27] MEDS ORDERED: cloNIDine HCL 0.3 MG TAB PO SCH (21:00)
[2017-11-27] MEDS: FAMOTIDINE 20 MG TAB PO SCH (21:21)
[2017-11-28 06:24] VITALS: BP 181/81; PULSE 68; RESP 17; TEMP 97.9; O2SAT 97
[2017-11-28] MEDS: cloNIDine HCL 0.2 MG TAB PO SCH (06:58)
[2017-11-28 07:42] LABS: AUTOMATED NEUTROPHIL # 7.1 TH/MM3 (1.8-7.7); BASOPHIL # 0.1 TH/MM3 (0-0.2); BASOPHIL % 1.2 % (0.0-2.0); EOSINOPHIL # 0.1 TH/MM3 (0-0.4); EOSINOPHIL % 1.7 % (0.0-4.0); HEMATOCRIT 30.7 % (35.0-46.0); HEMOGLOBIN 10.6 GM/DL (11.6-15.3); LYMPH % 9.5 % (9.0-44.0); LYMPHOCYTE # 0.8 TH/MM3 (1.0-4.8); MEAN CELL VOLUME 89.8 FL (80.0-100.0); MEAN CORPUSCULAR HEMOGLOBIN 31.1 PG (27.0-34.0); MEAN CORPUSCULAR HGB CONC 34.6 % (32.0-36.0); MONO % 6.9 % (0.0-8.0); MONOCYTE # 0.6 TH/MM3 (0-0.9); NEUT % 80.7 % (16.0-70.0); PLATELET COUNT 442 TH/MM3 (150-450); RED BLOOD COUNT 3.42 MIL/MM3 (4.00-5.30); RED CELL DISTRIBUTION WIDTH 16.7 % (11.6-17.2); WHITE BLOOD COUNT 8.8 TH/MM3 (4.0-11.0)
[2017-11-28 08:00] LABS: ALBUMIN 2.9 GM/DL (3.4-5.0); AST (GOT) 27 U/L (15-37); BICARBONATE 30.4 MEQ/L (21.0-32.0); BLOOD UREA NITROGEN 14 MG/DL (7-18); CHLORIDE 104 MEQ/L (98-107); CREATININE 0.65 MG/DL (0.50-1.00); GLOMERULAR FILTRATION RATE 87 ML/MIN (>89); GLUCOSE,RANDOM 94 MG/DL (74-106); MAGNESIUM 2.2 MG/DL (1.5-2.5); SODIUM (NA) 139 MEQ/L (136-145)
[2017-11-28 08:01] LABS: ALT (GPT) 23 U/L (10-53); PHOSPHORUS 2.8 MG/DL (2.5-4.9)
[2017-11-28 08:10] LABS: ALKALINE PHOSPHATASE 77 U/L (45-117); FREE T4 0.81 NG/DL (0.76-1.46); TOTAL BILIRUBIN ADULT 0.6 MG/DL (0.2-1.0); TOTAL PROTEIN 6.2 GM/DL (6.4-8.2)
--- NOTE | 2017-11-28 08:28 | HHI.DS ---
Psychiatry Discharge Summary Inpatient Psychiatric care?: Yes Advance Directive: No Reason Not Provided: Patient declines Mental Health AdvanceDirective: No Health Care Proxy: No Admission Admission Date Nov 27, 2017 at 05:21 Admission Diagnosis: (1) Major depressive disorder, recurrent ICD Code: F33.9 - Major depressive disorder, recurrent, unspecified Brief History Patient is an 82-year-old white female initially came here under Mccullough act after making suicidal notes scratching at her wrists and leading a gas grill. She was seen be having GI bleed she was admitted 11/24/17 through 11/27/17 under visit [id number] on the medicine side she was seen in consultation by Dr. Lira. He did recommend transfer the psychiatric unit are [facility] unit on medically appropriate. She was transferred here today. Dr. Lira recommended citalopram 10 mg a.m. added to the regimen. At the present time patient laying quietly in her bed she does have a sitter present also present was nurse Rama. Patient alert oriented white female appears about her stated age born in [place] though raise to this country. Been for about 7 years. States she did have an episode of depression about 7 years ago was seen by a psychiatrist in the community was hospitalized here overnight and discharged has not followed up with any mental health worker since then. Patient states of a more immediacy of the furniture for his past we will the past few days she became depressed over that developing the suicidal ideation scratching at her wrists and sending messages to her stepchildren. The patient scratched at her wrists she saw the blood and realizing did not want to do this stopped her behaviors clean the wounds off laid down. Of interest the patient lives in [place]. The police have a program for senior citizens where they call the citizen and if this isn't does not respond to send an officer to check on them this occurred with the patient relating to her coming in here. However the present time patient denies any suicidal ideation intent or plan she show some insight into the impulsiveness all this she still contracted to no harm. She does deny voices or visions with this denies alcohol or drug use with this. She lives by herself though she has 2 dogs that she appears to be quite attached to. And her to stepchildren from her are quite close and supportive with her also. Patient denies any physical or sexual abuse. Denies any mental health issues in the family. At this time patient does meet criteria for further observation assessment. Boyfriend she does have capacity to sign for her medications. Thus I'll lift Mccullough act allow the patient sign voluntary. We'll start her on her citalopram. We will have the medicine service also follow-up with this patient the right the admitting medical orders for her here the [facility] unit. Hopeless to be short stay patient returned to the community with appropriate follow-up Tobacco Use In Past 30 Days: No Tobacco Past 30 Days Alcohol Use: Never Hospital Course Patient seen today with nurse Rama patient continues to verify the fact that she is not suicidal. She denies suicidality homicidality voices or visions. States she wishes to go home to her apartment with her pet dogs. She showing insight into her problems she is well oriented. She states she felt some restless leg with the Celexa. She wishes that we may discontinue that. It is okay with me at this time. However since patient is on the med psych unit while it is okay by psych for discharge need to get medical clearance and medical okay. Thus I will initiate the discharge for this lady today contingent upon medical service discharging her resident the medical medications. She may follow-up with her PCP. And follow-up with her mental health clinician Dr. dan. The been no Rx by me Results Blood Pressure 181 / 81 Vital Signs Date Time Temp Pulse Resp B/P (MAP) Pulse Ox O2 Delivery O2 Flow Rate FiO2 11/28/17 06:24 97.9 68 17 181/81 (114) 97 Laboratory Tests Test 11/28/17 06:36 Red Blood Count 3.42 MIL/MM3 (4.00-5.30) Hemoglobin 10.6 GM/DL (11.6-15.3) Hematocrit 30.7 % (35.0-46.0) Neutrophils (%) (Auto) 80.7 % (16.0-70.0) Lymphocytes # (Auto) 0.8 TH/MM3 (1.0-4.8) Total Protein 6.2 GM/DL (6.4-8.2) Albumin 2.9 GM/DL (3.4-5.0) Estimat Glomerular Filtration Rate 87 ML/MIN (>89) Laboratory Results Test 11/28/17 06:36 Summary of Procedures See medical service Pending results at discharge: Yes (waiting CBC for medical service) Medications # of Antipsychotic meds at D/C: 0 Approp Antipsych med options 1 - Minimum of three failed multiple trials of monotherapy. 2 - Documented plan to taper to monotherapy due to previous use of multiple meds OR cross-taper in progress at D/C. 3 - Documentation of augmentation of Clozapine. 4 - Justification other than those listed in allowable values 1-3, document here : Discharge Discharge Date: Nov 28, 2017 Discharge Diagnosis: (1) Major depressive disorder, recurrent Diagnosis: Principal ICD Code: F33.9 - Major depressive disorder, recurrent, unspecified Status: Chronic (2) GI bleed Diagnosis: Secondary ICD Code: K92.2 - Gastrointestinal hemorrhage, unspecified Pt Condition on Discharge: Stable Discharge Disposition: Discharge Home Discharge Instructions Diet Instructions: As Tolerated, No Restrictions Activities you can perform: Regular-No Restrictions Scheduled Appointment: Private Psychiatrist Discharge Time > 30 minutes Mental Status Examination Appearance: Appropriate Consciousness: Alert Orientation: x4 Motor Activity: Normal gait (patient laying in bed left PT assess) Speech: Unremarkable Language: Adequate Fund of Knowledge: Adequate Attention and Concentration: Adequate Memory: Unremarkable Mood: Sad Affect: Other (slight decreased range and intensity) Thought Process & Associations: Intact Thought Content: Appropriate Hallucination Type: None Delusion Type: None Suicidal Ideation: No Suicidal Plan: No Suicidal Intention: No (denies at this time) Homicidal Ideation: No Homicidal Plan: No Homicidal Intention: No Insight: Adequate Judgment: Adequate Discharge/Advance Care Plan Health Problems: (1) Major depressive disorder, recurrent Goals to promote your health * To prevent worsening of your condition and complications * To maintain your health at the optimal level Directions to meet your goals Take your medications as prescribed Follow your dietary instruction Follow activity as directed Keep your appointments as scheduled Take your immunizations and boosters as scheduled If your symptoms worsen call your PCP, if no PCP go to Urgent Care Center or Emergency Room For 03/05 questions related to your inpatient stay or results of tests pending at discharge, please contact Dr. Driss Teixeira at Smoking is Dangerous to Your Health. Avoid second hand smoking Problem Qualifiers (1) Major depressive disorder, recurrent: Qualified Codes: F33.2 - Major depressive disorder, recurrent severe without psychotic features Driss Teixeira MD Nov 28, 2017 08:28
[2017-11-28] MEDS ORDERED: POTASSIUM CHLORIDE 10 MEQ CONTROLLED RELEASE TAB PO SCH (09:00)
[2017-11-28] MEDS ORDERED: PANTOPRAZOLE SOD 40 MG DELAYED RELEASE TAB PO SCH (09:00)
[2017-11-28] MEDS: FAMOTIDINE 20 MG TAB PO SCH (09:00)
[2017-11-28] MEDS ORDERED: LOSARTAN 50 MG TAB PO SCH (09:00)
[2017-11-28] MEDS: CITALOPRAM HYDROBROMIDE 20 MG TAB PO SCH (09:00)
[2017-11-28] MEDS: BUDESONIDE-FORMOTEROL 160/4.5 MCG INHALER INH SCH (09:00)
[2017-11-28] MEDS ORDERED: HYDROCHLOROTHIAZIDE 12.5 MG CAP PO SCH (09:00)
[2017-11-28] MEDS: ACETAMINOPHEN 325 MG TAB PO PRN (09:27)
--- NOTE | 2017-11-28 09:31 | HHI.DCPOC ---
Discharge Care Plan Diagnosis: (1) Atypical chest pain (2) GI bleed (3) Major depressive disorder, recurrent Goals to Promote Your Health * To prevent worsening of your condition and complications * To maintain your health at the optimal level Directions to Meet Your Goals Take your medications as prescribed Follow your dietary instruction Follow activity as directed Keep your appointments as scheduled Take your immunizations and boosters as scheduled If your symptoms worsen call your PCP, if no PCP go to Urgent Care Center or Emergency Room Smoking is Dangerous to Your Health. Avoid second hand smoke Call the 24-hour hour crisis hotline for domestic abuse at Hima Green MD, R3 Nov 28, 2017 09:31
--- NOTE | 2017-11-28 09:35 | HHI.PR ---
Subjective Remarks Patient seen and examined this morning. Temperature 97.9, pulse 68, respiratory rate 17, blood pressure 181/81, repeat 150/60 after taking medicines , pulse ox 97 on room air. Lying in bed comfortably in no distress. She has been cleared by psychiatry for discharge. Her hemoglobin hematocrit is stable from the previous anemia due to GI bleed. At this time she is cleared for discharge home Objective Vitals Vital Signs Date Time Temp Pulse Resp B/P (MAP) Pulse Ox O2 Delivery O2 Flow Rate FiO2 11/28/17 06:24 97.9 68 17 181/81 (114) 97 11/27/17 18:21 98.9 99 18 147/67 (93) 93 11/27/17 14:35 97.6 79 16 199/89 11/27/17 14:20 97.9 84 17 168/82 97 I/O 11/27/17 11/27/17 11/27/17 11/28/17 11/28/17 11/28/17 07:00 15:00 23:00 07:00 15:00 23:00 Intake Total 250 ml 1090 ml 120 ml 360 ml Balance 250 ml 1090 ml 120 ml 360 ml Intake Oral 240 ml 660 ml 120 ml 360 ml Packed Cells 400 ml Blood Product IV Normal Saline Flush 10 ml 30 ml # Voids 1 1 Result Diagram: 11/28/1763511/28/17 06 Objective Remarks GEN: Well-developed, well-nourished patient. No acute distress. CV: Regular rate and rhythm without obvious murmurs LUNGS: Clear to auscultation bilaterally. Normal respiratory effort. No wheezes , rales, rhonchi. GI: Soft, nontender, nondistended. No palpable masses. Bowel sounds WNL. EXT: No edema. NEURO/PSYCH: Afocal. Awake, alert, and oriented x3. Appropriate insight and judgment. Medications and IVs Current Medications Medications (Trade) Dose Ordered Sig/Velma Route Start Time Stop Time Status Last Admin (Tylenol) 650 mg Q4H PRN PO 11/27/17 08:30 11/28/17 09:27 (Milk Of Magnesia Liq) 30 ml DAILY PRN PO 11/27/17 08:30 (Mag-Al Plus Susp Liq) 30 ml Q6H PRN PO 11/27/17 08:30 (Atarax) 50 mg Q6H PRN PO 11/27/17 08:30 11/27/17 21:21 (CeleXA) 10 mg DAILY PO 11/27/17 09:00 11/27/17 08:56 (Catapres) 0.2 mg TID PO 11/27/17 13:00 11/28/17 06:58 (Catapres) 0.3 mg HS PO 11/27/17 21:00 11/27/17 21:21 (KCl) 10 meq DAILY PO 11/28/17 09:00 11/28/17 09:28 (Symbicort 160-4.5 Mcg Inh) 2 puff BID INH 11/27/17 21:00 (Cozaar) 50 mg DAILY PO 11/28/17 09:00 11/28/17 06:59 (Pepcid) 20 mg BID PO 11/27/17 21:00 11/27/17 21:21 (Microzide) 12.5 mg DAILY PO 11/28/17 09:00 11/28/17 06:58 (Protonix) 40 mg DAILY PO 11/28/17 09:00 11/28/17 09:29 A/P Problem List: (1) GI bleed ICD Code: K92.2 - Gastrointestinal hemorrhage, unspecified (2) Atypical chest pain ICD Code: R07.89 - Other chest pain (3) Major depressive disorder, recurrent ICD Code: F33.9 - Major depressive disorder, recurrent, unspecified Status: Chronic Assessment and Plan Anemia status post transfusion labs showing stable hemoglobin hematocrit at 10.6 /30.7 respectively Anemia of chronic disease recent GI bleeding, status post transfusion Hypertension resume home medications Depression with suicidal ideation will defer to psychiatry continue on her medications per them, cleared for discharge per psychiatry GERD PPI as needed and or H2 ezequiel Osteoarthritis pain medications as needed COPD and tobacco abuse recommend smoking cessation will give a NicoDerm patch Recent GI bleeding Continue GI and DVT prophylaxis Discharge Planning Discharge home today Problem Qualifiers (1) GI bleed: Qualified Codes: K92.2 - Gastrointestinal hemorrhage, unspecified (2) Major depressive disorder, recurrent: Qualified Codes: F33.2 - Major depressive disorder, recurrent severe without psychotic features Hima Green MD, R3 Nov 28, 2017 09:35
== END 2017-11-28 13:14 | disposition home or self-care (01) | DRG 885 ==
LOC: H4EA 11-27 05:21
PROVIDERS: ADMIT Psychiatry & Neurology Psychiatry; ATTEND Psychiatry & Neurology Psychiatry
PROC: 30233N1 Transfusion of Nonautologous Red Blood Cells into Peripheral Vein, Percutaneous Approach (ICD-10-PCS; principal; 2017-11-27)
DX: F33.2 Major depressive disorder, recurrent severe without psychotic features (principal); E11.51 Type 2 diabetes mellitus with diabetic peripheral angiopathy without gangrene; K92.2 Gastrointestinal hemorrhage, unspecified; Z99.81 Dependence on supplemental oxygen; I08.1 Rheumatic disorders of both mitral and tricuspid valves; I48.0 Paroxysmal atrial fibrillation; I10 Essential (primary) hypertension; G25.81 Restless legs syndrome; J44.9 Chronic obstructive pulmonary disease, unspecified; F17.210 Nicotine dependence, cigarettes, uncomplicated; D50.0 Iron deficiency anemia secondary to blood loss (chronic); E78.5 Hyperlipidemia, unspecified; K21.9 Gastro-esophageal reflux disease without esophagitis; I25.10 Atherosclerotic heart disease of native coronary artery without angina pectoris; L40.9 Psoriasis, unspecified; D63.8 Anemia in other chronic diseases classified elsewhere; M19.90 Unspecified osteoarthritis, unspecified site; I25.2 Old myocardial infarction; Z92.3 Personal history of irradiation; Z92.21 Personal history of antineoplastic chemotherapy; Z85.42 Personal history of malignant neoplasm of other parts of uterus; Z95.5 Presence of coronary angioplasty implant and graft; Z90.49 Acquired absence of other specified parts of digestive tract; Z90.710 Acquired absence of both cervix and uterus; T14.91XA Suicide attempt, initial encounter; S61.512A Laceration without foreign body of left wrist, initial encounter; S61.511A Laceration without foreign body of right wrist, initial encounter; X78.8XXA Intentional self-harm by other sharp object, initial encounter; Y92.009 Unspecified place in unspecified non-institutional (private) residence as the place of occurrence of the external cause; K31.819 Angiodysplasia of stomach and duodenum without bleeding; K57.10 Diverticulosis of small intestine without perforation or abscess without bleeding; R01.1 Cardiac murmur, unspecified; R74.8 Abnormal levels of other serum enzymes; Z79.899 Other long term (current) drug therapy
CPT/HCPCS: 36430; 80053; 83036; 83735; 84100; 84439; 84443; 85025; 86077; 86870; 86902; P9016